=== PATIENT | male | born 1930 | race Caucasian/White ===

== ENCOUNTER 2016-03-29 01:48 | Inpatient (IN) ==
--- NOTE | 2016-03-29 02:14 | Emergency Department Note ---
Disposition Clinical Impression: Chest pain Qualifiers: Chest pain type: unspecified Qualified Code(s): R07.9 - Chest pain, unspecified Disposition: Admitted As Inpatient Condition: Fair Time of Disposition: 04:17 Chest Pain HPI - General Chief Complaint: ED Chest Pain Stated Complaint: chest pain Time Seen by Provider: 03/29/16 02:08 Source: patient, EMS Limitations: no limitations Vital Signs Reviewed: Yes Nursing Notes Reviewed: Yes - History of Present Illness HPI Narrative: 85-year-old male with history of hypertension and hyperlipidemia presents to the emergency department for evaluation of chest pain. Patient states that his chest pain began at approximately 9:00 yesterday evening. Patient states that it progressively got worse and was radiating into his left shoulder and left neck. Patient states that he talk with his family and they gave him an aspirin which he states resolved his chest pain shortly afterwards. He denies any diaphoresis, nausea or vomiting. Patient states he has no known history of coronary artery disease. States he's never had a heart catheter done. Patient states she was feeling well up until this point. Currently is chest pain-free. Exam is remarkable for an elderly male resting in bed in no acute distress. He is awake and alert. Heart is regular rate and rhythm. He does have a 2/6 systolic murmur. His lungs are clear to auscultation bilaterally. His abdomen is soft and nontender. Labs, EKG and chest x-ray ordered. Pt complaint: chest pain Onset (ago): hour(s) (5) Duration: intermittent, now resolved Pain Location: left chest Severity: mild Severity scale (1-10): 4 Quality: sharp Pain Radiation: LUE, jaw/teeth Worsens with: nothing Associated symptoms: Denies: nausea, vomiting, diaphoresis, dyspnea Treatments prior to arrival chest pain: aspirin - Related Data Home Medications Medication Instructions Recorded Confirmed Amlodipine Besylate 5 mg PO DAILY 03/29/16 03/29/16 Lovastatin 10 mg PO DAILY 03/29/16 03/29/16 Metoprolol Tartrate 50 mg PO BID 03/29/16 03/29/16 Allergies Allergy/AdvReac Type Severity Reaction Status Date / Time No Known Allergies Allergy Verified 03/29/16 02:18 All systems ED: reviewed and negative except as stated. Constitutional: Denies: fever Cardiovascular: Reports: chest pain. Denies: palpitations, dyspnea on exertion Respiratory: Denies: cough, dyspnea, wheezes Gastrointestinal: Denies: abdominal pain, nausea, vomiting Genitourinary: Denies: dysuria Integumentary: Denies: rash Neurological: Denies: headache Chest Pain PMH - Past Medical History Medical history: Reports: hyperlipidemia, hypertension Psychiatric history: Reports: no psych history - Social History Smoking Status: Never smoker Alcohol use: Reports: none Drug use: Reports: none Physical Exam - General Limitations: no limitations General appearance: alert, in no apparent distress - Head Head exam: atraumatic, normocephalic, normal inspection - Chest Chest inspection: Present: normal inspection, symmetric chest wall rise - Respiratory Respiratory exam: Present: normal lung sounds bilaterally - Cardiovascular Cardiovascular exam: Present: regular rate, normal rhythm, systolic murmur - Abdominal Exam Abdominal exam: Present: soft, Non-Tender. Absent: tenderness, distention, guarding, rebound, rigidity - Neurological Exam Neurological exam: Present: alert - Skin Skin exam: Present: warm, dry, intact, normal color Course - Reevaluation(s) Reevaluation #1: Discussed findings with patient and family. Will admit to the hospital for observation. Discussed with hospitalist service who has accepted the patient on the contingency that [facility]. Contacted the facility states that it is the recommendation that the patient be admitted here since they do not have cardiology for consultation. Time: 04:52 Vital Signs Temperature 99.3 F 03/29/16 01:51 Pulse Rate 85 03/29/16 01:51 Respiratory Rate 20 03/29/16 01:51 Blood Pressure 145/78 03/29/16 01:51 O2 Sat by Pulse Oximetry 97 03/29/16 01:51 Temperature 97.8 F 03/29/16 05:15 Pulse Rate 74 03/29/16 05:15 Respiratory Rate 14 03/29/16 05:15 Blood Pressure 111/59 03/29/16 05:15 O2 Sat by Pulse Oximetry 95 03/29/16 05:15 Oxygen Delivery Oxygen Delivery Nasal Cannula Chest Pain - Medical Records Medical records reviewed: Yes I reviewed the patient's medical records. - Lab Data Lab results reviewed: Yes I reviewed the patient's lab results. Result diagrams: 03/29/16 02:25 03/29/16 02:25 Lab Results 03/29/16 03/29/1603/29/17 Range/Units 02:25 02:25 02:25 WBC 22.7 H (4.3-11.1) K/mcL RBC 3.99 L (4.19-5.50) M/mcL Hgb 11.5 L (12.9-16.9) g/dL Hct 35.1 L (37.5-50.1) % MCV 88.0 (83.0-100.0) fL MCH 28.8 (28.0-33.3) pg MCHC 32.8 (31.6-35.5) g/dL RDW 13.7 (11.5-14.5) % Plt Count 302 (140-400) K/mcL MPV 10.1 (9.4-12.4) fL Immature Gran % 0.8 (0-4) % Seg Neutrophils % 85.4 % Lymphocytes % 5.0 % Monocytes % 8.4 % Eosinophils % 0.1 % Basophils % 0.3 % Neutrophils # 19.4 H (1.6-8.9) K/mcL Lymphocytes # 1.1 (0.6-4.6) K/mcL Monocytes # 1.9 H (0.0-1.3) K/mcL Eosinophils # 0.0 (0.0-0.6) K/mcL Basophils # 0.1 (0.0-0.2) K/mcL Sodium 138 (136-145) mEq/L Potassium 4.6 H (3.5-4.5) mEq/L Chloride 105 (98-109) mEq/L Carbon Dioxide 22 (19-29) mEq/L BUN 21 (8-26) mg/dL Creatinine 1.42 H (0.72-1.25) mg/dL Est GFR ( Amer) 57 L (> 60) Est GFR (Non-Af Amer) 47 L (> 60) BUN/Creatinine Ratio 15 (6-26) Glucose 135 H (70-99) mg/dL Calculated Osmolality 291 (280-300) Calcium 9.9 (8.6-10.8) mg/dL Troponin I 0.01 (0-0.03) ng/mL Urine Color (Yellow) Urine Clarity (Clear) Urine pH (5.0-8.0) pH Units Ur Specific [place] (1.010-1.025) Urine Protein (Neg-Trace) mg/dL Urine Glucose (UA) (Normal) mg/dL Urine Ketones (Negative) mg/dL Urine Blood (Negative) Urine Nitrite (Negative) Urine Bilirubin (Negative) Urine Urobilinogen (Normal) mg/dL Ur Leukocyte Esterase (Negative) Urine Microscopic RBC (0-3) per hpf Urine Microscopic WBC (0-3) per hpf Ur Squamous Epith Cells (None-Few) per lpf Urine Bacteria (None-Few) per hpf Hyaline Casts (None-Few) per lpf Ur Culture Indicated? (NO) 03/29/16 Range/Units 03:10 WBC (4.3-11.1) K/mcL RBC (4.19-5.50) M/mcL Hgb (12.9-16.9) g/dL Hct (37.5-50.1) % MCV (83.0-100.0) fL MCH (28.0-33.3) pg MCHC (31.6-35.5) g/dL RDW (11.5-14.5) % Plt Count (140-400) K/mcL MPV (9.4-12.4) fL Immature Gran % (0-4) % Seg Neutrophils % % Lymphocytes % % Monocytes % % Eosinophils % % Basophils % % Neutrophils # (1.6-8.9) K/mcL Lymphocytes # (0.6-4.6) K/mcL Monocytes # (0.0-1.3) K/mcL Eosinophils # (0.0-0.6) K/mcL Basophils # (0.0-0.2) K/mcL Sodium (136-145) mEq/L Potassium (3.5-4.5) mEq/L Chloride (98-109) mEq/L Carbon Dioxide (19-29) mEq/L BUN (8-26) mg/dL Creatinine (0.72-1.25) mg/dL Est GFR ( Amer) (> 60) Est GFR (Non-Af Amer) (> 60) BUN/Creatinine Ratio (6-26) Glucose (70-99) mg/dL Calculated Osmolality (280-300) Calcium (8.6-10.8) mg/dL Troponin I (0-0.03) ng/mL Urine Color Yellow (Yellow) Urine Clarity Clear (Clear) Urine pH 7.0 (5.0-8.0) pH Units Ur Specific [place] 1.018 (1.010-1.025) Urine Protein 30 H (Neg-Trace) mg/dL Urine Glucose (UA) Normal (Normal) mg/dL Urine Ketones Negative (Negative) mg/dL Urine Blood Negative (Negative) Urine Nitrite Negative (Negative) Urine Bilirubin Negative (Negative) Urine Urobilinogen Normal (Normal) mg/dL Ur Leukocyte Esterase Negative (Negative) Urine Microscopic RBC 0-3 (0-3) per hpf Urine Microscopic WBC 0-3 (0-3) per hpf Ur Squamous Epith Cells Moderate H (None-Few) per lpf Urine Bacteria None Seen (None-Few) per hpf Hyaline Casts None Seen (None-Few) per lpf Ur Culture Indicated? NO (NO) - Radiology Data Radiology results reviewed: Yes I reviewed the patient's radiology results. - EKG Data EKG attestation: Yes I reviewed and interpreted this EKG. EKG shows normal: sinus rhythm Rate: normal [place]/QRS: RBBB Interpretation: no acute changes Heart Score - Score History: Slightly Suspicious EKG: Non Specific repolarisation Disturbance Age: Greater than 65 Risk Factors: 1-2 risk factors Troponin: Less than normal limit HEART Score Total: 4 Attestation Statement - Attestation Attestation: I, Herrera Ansari MD, personally performed a history and physical exam of the patient and discussed their management with the resident. I reviewed the resident's note and agree with the documented findings, medical decision making , and plan of care. 85-year-old male who presents to the emergency department with a complaint of some substernal chest pain radiating to the back of the neck and the left side of the neck and left shoulder which started earlier this evening. He denies shortness of breath. No nausea or vomiting or diaphoresis. He denies any known history of heart problems. Family reports that he does sometimes get short of breath especially with exertion but is not on home oxygen. On examination patient is a well-developed well-nourished elderly male in no acute distress. He is alert and oriented 3. There is no cyanosis or diaphoresis. Chest is nontender to palpation. Breath sounds are decreased but equal bilaterally with no rales or wheezes noted. Heart regular rate and rhythm with a grade 3/6 systolic murmur. Abdomen soft and nontender with normal bowel sounds. Labs reviewed. Chest x-ray shows CHF with mild pulmonary vascular congestion. EKG shows a normal sinus rhythm with a right bundle branch block which was present on his prior EKG from 1996. The hospitalist, Dr. Morgan, was consulted and accepted admission of the patient.
[2016-03-29 02:35] LABS: Basophils # 0.1 K/mcL (0.0-0.2); Basophils % 0.3 %; Eosinophils % 0.1 %; Hematocrit 35.1 % (37.5-50.1); Hemoglobin 11.5 g/dL (12.9-16.9); Immature Granulocytes % 0.8 % (0-4); Lymphocytes # 1.1 K/mcL (0.6-4.6); Mean Corpuscular HGB Conc 32.8 g/dL (31.6-35.5); Mean Corpuscular Hemoglobin 28.8 pg (28.0-33.3); Mean Platelet Volume 10.1 fL (9.4-12.4); Monocytes # 1.9 K/mcL (0.0-1.3); Monocytes % 8.4 %; Neutrophils # 19.4 K/mcL (1.6-8.9); Platelet Count 302 K/mcL (140-400); Red Blood Count 3.99 M/mcL (4.19-5.50); Red Cell Distribution Width 13.7 % (11.5-14.5); Segmented Neutrophils % 85.4 %
[2016-03-29 02:46] LABS: Calcium 9.9 mg/dL (8.6-10.8); Potassium 4.6 mEq/L (3.5-4.5)
[2016-03-29 03:44] LABS: Bilirubin,Urine Negative (Negative); Blood,Urine Negative (Negative); Clarity,Urine Clear (Clear); Color,Urine Yellow (Yellow); Glucose,Urine (UA) Normal (Normal); Ketones,Urine Negative (Negative); Leukocyte Esterase,Urine Negative (Negative); Nitrite,Urine Negative (Negative); Protein,Urine 30 mg/dL (Neg-Trace); Specific Gravity,Urine 1.018 (1.010-1.025); Urobilinogen,Urine Normal (Normal)
[2016-03-29 03:47] LABS: Bacteria,Urine None Seen per hpf (None-Few); Hyaline Casts,Urine None Seen per lpf (None-Few); RBC,Urine 0-3 per hpf (0-3); Squamous Epithelial Cell,Urine Moderate per lpf (None-Few); WBC,Urine 0-3 per hpf (0-3)
[2016-03-29] MEDS ORDERED: Nitroglycerin 0.4 MG TAB.SUBL SL PRN (05:53)
[2016-03-29] MEDS ORDERED: Acetaminophen 325 MG TABLET PO PRN (05:55)
[2016-03-29] MEDS ORDERED: Ondansetron 4 MG/2 ML VIAL IVP PRN (05:55)
[2016-03-29] MEDS ORDERED: Naloxone 0.4 MG/ML INJ IVP PRN (05:55)
[2016-03-29] MEDS ORDERED: 0.9 % Sodium Chloride 1,000 ML IVC SCH ×2 (06:00→06:44)
[2016-03-29] MEDS ORDERED: *HR* Morphine 2 MG/ML SYRINGE IVP PRN (06:18)
--- NOTE | 2016-03-29 06:28 | Internal Med History&Physical ---
<Maritza Coelho - Last Filed: 03/29/16 06:01> Date of Encounter: 03/29/16 Time of Encounter: 05:15 Assessment and Plan (1) Chest pain with moderate risk of acute coronary syndrome Current visit: Yes Status: Acute Patient came in with CC of substernal sharp CP radiating to back and shoulder. DEVORA score is 3- moderate risk factor for all cause mortality. EKG showed RBBB with nonspecific T wave changes. CXR showed CHF with mild pulmonary vascular congestion, likely secondary to ACS - jeffery to gravity, strict I/O. ASA, statin, BB, SL nitroglycerin PRN Morphine PRN Oxygen PRN Initial Trope negative, two more pending. Consider stress test if tropes remain negative. cardiac diet. (2) Chest pain, rule out acute myocardial infarction Current visit: Yes Status: Acute Plan as above. (3) DINA (acute kidney injury) Current visit: Yes Status: Acute Patient's Cr is 1.42, no records of prior Cr to compare. Etiology likely due to acute ACS. IVF hydration Avoid nephrotoxic agents. (4) HTN (hypertension) Current visit: Yes Status: Acute Continue Amlodipine and monitor. Qualifiers: Hypertension type: essential hypertension Qualified Code(s): I10 - Essential (primary) hypertension (5) HLD (hyperlipidemia) Current visit: Yes Status: Acute Continue home statin Lipid panel pending. Qualifiers: Hyperlipidemia type: unspecified Qualified Code(s): E78.5 - Hyperlipidemia , unspecified (6) DVT prophylaxis Current visit: Yes Status: Acute Heparin 5,000 units SQ Q8HR Protonix for GI prophylaxis. Internal Medicine - H&P: HPI Chief complaint: chest pain Admitted From: Emergency Dept Plans for Post Hospital Care: Home History of present illness: PCP: Dr. Gonzales at [facility] POA: Arnel (son) Mr. Quevedo is a 85 year old male with PMHx significant for HTN, HLD. Patient states that he came to the ED with CC of chest pain that started at 9pm last night. He describes the CP as sharp, diffuse and radiating to his left arm and left shoulder. When the pain started, it was a 10/10 but currently is a 2/10. His son gave him 325 ASA which relieved the pain. Patient states that he never had anything like this before. Taking a deep breath makes the pain worse. He denies Nausea, vomiting, diarrhea. ROS: He reports subjective fever and chills. He reports mild dizziness. About three months ago he reports that he had an episode of falling back on the bed after getting up out of bed too quickly. Other than this, he reports no history of falls. Sometimes, he has trouble walking and says he is "wobbly." Patient has mild shortness of breath. He denies history of pacemaker or defibrillator implants. He denies hematuria/hematochezia. Social Hx: lives with his son Arnel, who is also his POA. Not a current smoker , denies hx of smoking. Denies alcohol or illicit drug use. Surgical Hx: left inguinal hernia Past Med Surg Social Fam HX - Past Medical History Medical history: hyperlipidemia, hypertension Psychiatric history: no psych history - Past Surgical History Surgical History: herniorrhaphy - Social History Smoking Status: Never smoker Smokeless Tobacco Status: No Alcohol use: none Drug use: none Internal Medicine - H&P: Meds Amlodipine Besylate 5 mg PO DAILY 03/29/16 [History] Lovastatin 10 mg PO DAILY 03/29/16 [History] Metoprolol Tartrate 50 mg PO BID 03/29/16 [History] Allergies No Known Allergies Allergy (Verified 03/29/16 08:19) All Systems PM: A 10-system review of systems was performed and is negative for pertinent findings except as documented above in the HPI. - Constitutional Constitutional: chills, falls, weakness, no night sweats - EENT Eyes: no blurry vision Nose, mouth and throat: no bleeding gums - Cardiovascular Cardiovascular ROS IM: chest pain, no diaphoresis, no palpitations, no syncope - Respiratory Respiratory: no dyspnea - Gastrointestinal Gastrointestinal: no abdominal pain, no diarrhea, no hematochezia, no melena, no nausea, no vomiting - Neurological Neurological ROS: dizziness, no abnormal movements, no behavioral changes, no frequent falls, no headache(s) - Psychiatric Psychiatric: no confusion - Constitutional Vitals: Temp Pulse Resp BP Pulse Ox 97.8 F 74 14 111/59 95 03/29/16 05:15 03/29/16 05:15 03/29/16 05:15 03/29/16 05:15 03/29/16 05:15 General appearance: Present: A&O X 3, pleasant, no acute distress, answers questions appropriately - Head Head exam: Present: atraumatic, normocephalic - Neck Neck exam general surgery: Present: supple, trachea midline - Respiratory Respiratory exam: Present: CTAB. Absent: rales, wheezes - Cardiovascular Cardiovascular exam: Present: RRR, +S1, +S2, systolic murmur - GI/Abdominal GI/Abdominal exam: Present: soft, tenderness (middle and left side of abdomen was tender. ). Absent: distended - Extremities Exam Additional comments: right foot swollen. - Neurological Exam Neurological exam: Present: alert, oriented X3, no focal deficits Internal Med - H&P Results - Labs CBC & Chem 7: 03/29/16 02:25 03/29/16 02:25 <Erick Morgan - Last Filed: 03/29/16 22:28> Date of Encounter: 03/29/16 Assessment and Plan (1) CKD (chronic kidney disease) stage 3, GFR 30-59 ml/min Current visit: Yes Status: Acute (2) SIRS (systemic inflammatory response syndrome) Current visit: Yes Status: Acute (3) Dehydration with hypernatremia Current visit: Yes Status: Acute (4) Hyperglycemia without ketosis Current visit: Yes Status: Acute (5) Hx of proteinuria syndrome Current visit: Yes Status: Acute (6) Anemia Current visit: Yes Status: Acute (7) RBBB Current visit: Yes Status: Acute (8) DINA (acute kidney injury) Current visit: Yes Status: Acute (9) Chest pain with moderate risk of acute coronary syndrome Current visit: Yes Status: Acute (10) Chest pain, rule out acute myocardial infarction Current visit: Yes Status: Acute (11) HLD (hyperlipidemia) Current visit: Yes Status: Acute Qualifiers: Hyperlipidemia type: unspecified Qualified Code(s): E78.5 - Hyperlipidemia , unspecified (12) HTN (hypertension) Current visit: Yes Status: Acute Qualifiers: Hypertension type: essential hypertension Qualified Code(s): I10 - Essential (primary) hypertension (13) Acute respiratory failure with hypoxia Current visit: Yes Status: Acute . (14) Pulmonary edema w/congestive heart failure w/preserved LV function Current visit: Yes Status: Acute . (15) Demand ischemia of myocardium Current visit: Yes Status: Acute . (16) Ischemia due to increased oxygen demand Current visit: Yes Status: Acute . Internal Medicine - H&P: HPI History of present illness: Mr. Quevedo is a 85 year old male The patient was visited and interviewed and examined. I examined this patient and my medical decision-making was reviewed with the Resident Physician. For this encounter, I have reviewed the Residen Physician's documentation, treatment plan and medical decision making; and I have had [id number] time with this patient. I agree with the documented findings, disposition and treatment plan as described except for the extent set forth below. Cumulative laboratory and radiographic database was reviewed and considered and discussed. Pertinent ancillary medical records including [facility], PCI and [facility] documentation, when available, was reviewed and considered. Given the patient's presenting concerns, past medical history, clinical findings and symptoms, he is admitted at this time to undergo further evaluation and disposition. Orders written as per the computerized physician division order technician system................................... All Systems PM: A 10-system review of systems was performed and is negative for pertinent findings except as documented above in the HPI. - Constitutional Vitals: Temp Pulse Resp BP Pulse Ox 98.3 F 82 15 92/51 97 03/29/16 12:51 03/29/16 15:00 03/29/16 15:00 03/29/16 15:00 03/29/16 15:00 Internal Med - H&P Results - Labs CBC & Chem 7: 03/29/16 02:25 03/29/16 02:25 Labs: Cardiac Enzymes 03/29/16 Range/Units 14:11 Troponin I 0.02 (0-0.03) ng/mL - Impressions ITS Impressions Face CT 03/29/16 12:00 IMPRESSION: No acute abnormality of the face. Sclerosis of the C3 vertebral body. Nonemergent evaluation with contrast-enhanced MRI of the cervical spine recommended. D/ / Berta Dumont MD / Berta Dumont MD Interpreting Provider: Berta Dumont MD Vital Signs Temp Pulse Resp BP Pulse Ox 03/29/16 15:00 82 15 92/51 97 03/29/16 12:51 98.3 F 69 20 116/49 95 03/29/16 11:26 93 L 03/29/16 11:00 75 15 111/55 94 L 03/29/16 08:15 71 100/49 03/29/16 08:00 72 118/59 03/29/16 07:45 78 111/69 03/29/16 07:28 73 125/62 93 L 03/29/16 06:55 76 18 119/64 97 03/29/16 05:15 97.8 F 74 14 111/59 95 03/29/16 04:47 99.2 F 18 130/60 03/29/16 04:35 71 16 130/60 97 03/29/16 03:36 76 24 139/88 95 03/29/16 02:19 97 03/29/16 02:07 97 03/29/16 01:51 99.3 F 85 20 145/78 97 Intake and Output 03/29/16 03/29/16 03/29/16 07:59 15:59 23:59 Intake Total 120 / 120 1140 / 1140 Output Total 200 / 200 Balance -200 / -200 120 / 120 1140 / 1140 Intake: IV Fluids 900 / 900 0.9 % Sodium Chloride 1, 900 / 900 000 ML @ 125 mls/hr IVC . Q8H [facility] Rx#:[id number] Oral 120 / 120 240 / 240 Output: Urine 200 / 200 Other: Meal Lunch Dinner Percent of Meal Consumed 60% 10% Weight 61.9 kg Patient Weight 03/29/16 23:59 Weight 61.9 kg Short CBC 03/29/16 Range/Units 02:25 WBC 22.7 H (4.3-11.1) K/mcL Hgb 11.5 L (12.9-16.9) g/dL Hct 35.1 L (37.5-50.1) % Plt Count 302 (140-400) K/mcL Neutrophils # 19.4 H (1.6-8.9) K/mcL BMP 03/29/16 Range/Units 02:25 Sodium 138 (136-145) mEq/L Potassium 4.6 H (3.5-4.5) mEq/L Chloride 105 (98-109) mEq/L Carbon Dioxide 22 (19-29) mEq/L BUN 21 (8-26) mg/dL Creatinine 1.42 H (0.72-1.25) mg/dL Glucose 135 H (70-99) mg/dL Calcium 9.9 (8.6-10.8) mg/dL Cardiac Enzymes 03/29/16 03/29/16 03/29/16 Range/Units 14:11 09:04 02:25 Troponin I 0.02 0.01 0.01 (0-0.03) ng/mL Urine 03/29/16 Range/Units 03:10 Urine Color Yellow (Yellow) Urine Clarity Clear (Clear) Urine pH 7.0 (5.0-8.0) pH Units Ur Specific [place] 1.018 (1.010-1.025) Urine Protein 30 H (Neg-Trace) mg/dL Urine Glucose (UA) Normal (Normal) mg/dL Abnormal lab results WBC 22.7 K/mcL (4.3-11.1) H 03/29/16 02:25 RBC 3.99 M/mcL (4.19-5.50) L 03/29/16 02:25 Hgb 11.5 g/dL (12.9-16.9) L 03/29/16 02:25 Hct 35.1 % (37.5-50.1) L 03/29/16 02:25 Neutrophils # 19.4 K/mcL (1.6-8.9) H 03/29/16 02:25 Monocytes # 1.9 K/mcL (0.0-1.3) H 03/29/16 02:25 Potassium 4.6 mEq/L (3.5-4.5) H 03/29/16 02:25 Creatinine 1.42 mg/dL (0.72-1.25) H 03/29/16 02:25 Est GFR ( Amer) 57 (> 60) L 03/29/16 02:25 Est GFR (Non-Af Amer) 47 (> 60) L 03/29/16 02:25 Glucose 135 mg/dL (70-99) H 03/29/16 02:25 Urine Protein 30 mg/dL (Neg-Trace) H 03/29/16 03:10 Ur Squamous Epith Cells Moderate per lpf (None-Few) H 03/29/16 03:10 Laboratory Results WBC 22.7 K/mcL (4.3-11.1) H 03/29/16 02:25 RBC 3.99 M/mcL (4.19-5.50) L 03/29/16 02:25 Hgb 11.5 g/dL (12.9-16.9) L 03/29/16 02:25 Hct 35.1 % (37.5-50.1) L 03/29/16 02:25 MCV 88.0 fL (83.0-100.0) 03/29/16 02:25 MCH 28.8 pg (28.0-33.3) 03/29/16 02:25 MCHC 32.8 g/dL (31.6-35.5) 03/29/16 02:25 RDW 13.7 % (11.5-14.5) 03/29/16 02:25 Plt Count 302 K/mcL (140-400) 03/29/16 02:25 MPV 10.1 fL (9.4-12.4) 03/29/16 02:25 Immature Gran % 0.8 % (0-4) 03/29/16 02:25 Seg Neutrophils % 85.4 % 03/29/16 02:25 Lymphocytes % 5.0 % 03/29/16 02:25 Monocytes % 8.4 % 03/29/16 02:25 Eosinophils % 0.1 % 03/29/16 02:25 Basophils % 0.3 % 03/29/16 02:25 Neutrophils # 19.4 K/mcL (1.6-8.9) H 03/29/16 02:25 Lymphocytes # 1.1 K/mcL (0.6-4.6) 03/29/16 02:25 Monocytes # 1.9 K/mcL (0.0-1.3) H 03/29/16 02:25 Eosinophils # 0.0 K/mcL (0.0-0.6) 03/29/16 02:25 Basophils # 0.1 K/mcL (0.0-0.2) 03/29/16 02:25 D-Dimer 395 ng/mLFEU (0-500) 03/29/16 09:04 Sodium 138 mEq/L (136-145) 03/29/16 02:25 Potassium 4.6 mEq/L (3.5-4.5) H 03/29/16 02:25 Chloride 105 mEq/L (98-109) 03/29/16 02:25 Carbon Dioxide 22 mEq/L (19-29) 03/29/16 02:25 BUN 21 mg/dL (8-26) 03/29/16 02:25 Creatinine 1.42 mg/dL (0.72-1.25) H 03/29/16 02:25 Est GFR ( Amer) 57 (> 60) L 03/29/16 02:25 Est GFR (Non-Af Amer) 47 (> 60) L 03/29/16 02:25 BUN/Creatinine Ratio 15 (6-26) 03/29/16 02:25 Glucose 135 mg/dL (70-99) H 03/29/16 02:25 Calculated Osmolality 291 (280-300) 03/29/16 02:25 Lactic Acid 1.8 mmol/L (0.5-2.2) 03/29/16 09:04 Calcium 9.9 mg/dL (8.6-10.8) 03/29/16 02:25 Troponin I 0.02 ng/mL (0-0.03) 03/29/16 14:11 Triglycerides 69 mg/dL (< 150) 03/29/16 09:04 Cholesterol 119 mg/dL (< 200) 03/29/16 09:04 LDL Cholesterol, Calc 63 mg/dL (0-99) 03/29/16 09:04 VLDL Cholesterol, Calc 14 mg/dL (< 31) 03/29/16 09:04 HDL Cholesterol 42 mg/dL (40-59) 03/29/16 09:04 Cholesterol/HDL Ratio 2.8 (0-4.9) 03/29/16 09:04 Urine Color Yellow (Yellow) 03/29/16 03:10 Urine Clarity Clear (Clear) 03/29/16 03:10 Urine pH 7.0 pH Units (5.0-8.0) 03/29/16 03:10 Ur Specific [place] 1.018 (1.010-1.025) 03/29/16 03:10 Urine Protein 30 mg/dL (Neg-Trace) H 03/29/16 03:10 Urine Glucose (UA) Normal mg/dL (Normal) 03/29/16 03:10 Urine Ketones Negative mg/dL (Negative) 03/29/16 03:10 Urine Blood Negative (Negative) 03/29/16 03:10 Urine Nitrite Negative (Negative) 03/29/16 03:10 Urine Bilirubin Negative (Negative) 03/29/16 03:10 Urine Urobilinogen Normal mg/dL (Normal) 03/29/16 03:10 Ur Leukocyte Esterase Negative (Negative) 03/29/16 03:10 Urine Microscopic RBC 0-3 per hpf (0-3) 03/29/16 03:10 Urine Microscopic WBC 0-3 per hpf (0-3) 03/29/16 03:10 Ur Squamous Epith Cells Moderate per lpf (None-Few) H 03/29/16 03:10 Urine Bacteria None Seen per hpf (None-Few) 03/29/16 03:10 Hyaline Casts None Seen per lpf (None-Few) 03/29/16 03:10 Ur Culture Indicated? NO (NO) 03/29/16 03:10 Impressions Chest X-Ray 03/29/16 02:11 IMPRESSION: CHF with mild pulmonary vascular congestion. D/ / Audie Russell MD / Audie Russell MD Interpreting Provider: Audie Russell MD Face CT 03/29/16 12:00 IMPRESSION: No acute abnormality of the face. Sclerosis of the C3 vertebral body. Nonemergent evaluation with contrast-enhanced MRI of the cervical spine recommended. D/ / Berta Dumont MD / Berta Dumont MD Interpreting Provider: Berta Dumont MD - Attending Attestation My signature below is to certify that this patient is under my care and that I, or the Resident Physician working with me, has had a [id number] encounter with this patient. Plan of care has been reviewed and discussed with the patient. Questions were addressed. Advance care directive discussion briefly addressed. The patient declares specific restrictions at this time. Outpatient medications schedules will be reviewed, confirmed and facilitated as appropriate. Reconciliation of home treatments including adjustments, substitutions and reintroduction to the treatment regimen addressed as a maintenance therapies for chronic existing medical conditions. Smoke cessation counseling for addressed. The patient declares himself a nonsmoker. Hospital course will be dependent on collective clinical findings, treatment response and potential consultative interventions. The patient is at risk for further acute clinical decline and morbidity given his advanced age, presenting complaint, clinical findings and comorbidities. Condition is serious. Prognosis is guarded. CODE STATUS is DNR comfort care arrest DNI.
[2016-03-29] MEDS ORDERED: *HR* Heparin 5,000 UNIT/ML VIAL SQ SCH (07:00)
[2016-03-29] MEDS ORDERED: amLODIPine 5 MG TABLET PO SCH (09:00)
[2016-03-29 09:35] LABS: Chol/HDL Ratio 2.8 (0-4.9)
[2016-03-29] MEDS ORDERED: Levofloxacin 750 MG/150 ML 750 MG/150 ML BAG IVPB SCH (10:00)
[2016-03-29] MEDS ORDERED: Levofloxacin 500 MG/100 ML 500 MG/100 ML BAG IVPB SCH (10:00)
[2016-03-29] MEDS: Pantoprazole 40 MG VIAL IVP SCH (11:01)
[2016-03-29] MEDS: 0.9 % Sodium Chloride 1,000 ML IVC SCH ×2 (11:01→17:15)
[2016-03-29] MEDS: Aspirin 81 MG TAB.CHEW PO SCH (11:01)
[2016-03-29] MEDS: *HR* Heparin 5,000 UNIT/ML VIAL SQ SCH ×3 (13:28→17:27)
[2016-03-29] MEDS: Piperacillin/Tazobactam 3.375 GM in D5% in Water (Mini-Bag+) 100 ML IVPB SCH (17:14)
--- NOTE | 2016-03-29 17:48 | Event Note ---
Date of Encounter: 03/29/16 Time of Encounter: 17:22 85/M PCP: Dr Art HPI : Admitted with Chest pain. One episode and was brought in by patient's son who claims that patient had teeth extraction on 03/19/2016( left upper 5). patient received 16 tabs of amoxicillin and he never completed the course. Denies SOB, Nausea, Vomiting and abdominal pain. admitted by night team with concern regarding chest pain. Vitals : Afebrile, tachycardic ( 99/m), 92/51 mm of Hg, 97% on RA. PE: Examination of oral cavity is suggestive of possible left upper dental abscess. Examination of eyes, ears, nose cervical area does not reveal any abnormality. Examination of heart is suggestive of grade 5/6, holosystolic murmur which does not change with respiration. Examination of the gland is within normal limit. His abdominal examination is benign. His neurological examination did not reveal any major abnormality. Assessment and plan Dental abscess secondary to tooth extraction with noncompliance in terms of antibiotics. Multiple medical issues as listed in history and physical Plan: CT chest of the face with contrast: Negative for any abscess. Presently on antibiotics: Zosyn and Levaquin, dual coverage for Pseudomonas. Will get echocardiogram done. I have spoken to the dentist Dr. Reggie Garnica [phone] ( exchanged information )
[2016-03-30] MEDS: Piperacillin/Tazobactam 3.375 GM in D5% in Water (Mini-Bag+) 100 ML IVPB SCH ×3 (01:52→16:14)
[2016-03-30] MEDS: *HR* Heparin 5,000 UNIT/ML VIAL SQ SCH ×3 (01:52→22:27)
[2016-03-30] MEDS: 0.9 % Sodium Chloride 1,000 ML IVC SCH ×4 (01:53→22:28)
[2016-03-30 05:29] LABS: Basophils # 0.1 K/mcL (0.0-0.2); Basophils % 0.4 %; Eosinophils % 0.2 %; Hematocrit 29.5 % (37.5-50.1); Immature Granulocytes % 0.6 % (0-4); Lymphocytes # 2.2 K/mcL (0.6-4.6); Lymphocytes % 17.1 %; Mean Corpuscular HGB Conc 32.2 g/dL (31.6-35.5); Mean Corpuscular Hemoglobin 29.1 pg (28.0-33.3); Mean Corpuscular Volume 90.2 fL (83.0-100.0); Mean Platelet Volume 10.9 fL (9.4-12.4); Monocytes # 1.6 K/mcL (0.0-1.3); Monocytes % 12.3 %; Platelet Count 247 K/mcL (140-400); Red Blood Count 3.27 M/mcL (4.19-5.50); Red Cell Distribution Width 14.2 % (11.5-14.5); Segmented Neutrophils % 69.4 %
[2016-03-30 05:33] LABS: Hemoglobin 9.5 g/dL (12.9-16.9)
[2016-03-30 05:49] LABS: Calcium 8.5 mg/dL (8.6-10.8); Potassium 4.5 mEq/L (3.5-4.5)
[2016-03-30] MEDS: Aspirin 81 MG TAB.CHEW PO SCH (09:47)
[2016-03-30] MEDS: Pantoprazole 40 MG VIAL IVP SCH (09:47)
[2016-03-30] MEDS ORDERED: Bisacodyl 10 MG RECTAL SUPPOSITORY RC PRN (10:52)
--- NOTE | 2016-03-30 10:58 | ECHO - Doppler Report ---
Echocardiogram Name: Raymond Quevedo Date of Study: 03/29/2016 Date: 1930 Ht: 67.0 in Medical Record#: [id number] Age: 85 Wt: 136.0 lb Gender: Male BSA: 1.72 Order #: [id number] Location: [facility] Room #: 2NE27 Reading Physician: Micheal Pfeiffer DO, ROSEMARY, FILEMON BOO Oxygen Therapy Technician: TRUDY HudsonT Ordering Physician: Maritza Coelho DO Primary Physician: [facility] Indications: Congestive heart failure Impressions: LVEF 65-70%. Normal LV chamber size and function. Mild concentric left ventricular hypertrophy. Mild left ventricular diastolic dysfunction. Normal right ventricular structure and function. Moderately dilated left atrium. Severely calcified, probable trileaflet aortic valve with reduced excursion. Severe aortic stenosis. Mean gradient 41 mmHg. Peak velocity 4.02 m/s. Mild pulmonary hypertension. Estimated RVSP is [address] Coelho notified via [employer]. Left Ventricular Wall Motion: Rest Echo Findings All wall segments showed normal motion. Findings: Study Quality * Technically adequate exam. ECG Findings * Normal sinus rhythm. Left Ventricle * LVEF 65-70%. * Normal LV chamber size and function. * Mild concentric left ventricular hypertrophy. * Mild left ventricular diastolic dysfunction. Right Ventricle * Normal right ventricular structure and function. Left Atrium * Moderately dilated left atrium. Right Atrium * Normal right atrial size. Interatrial Septum * Interatrial septum not well evaluated. Aortic Valve * Severely calcified, probable trileaflet aortic valve with reduced excursion. * Severe aortic stenosis. Mean gradient 41 mmHg. Peak velocity 4.02 m/s. * Trace aortic regurgitation. Mitral Valve * Mild mitral annular calcification * Trace mitral regurgitation. * No mitral stenosis. Tricuspid Valve * Normal tricuspid valve structure and function. * Trace tricuspid regurgitation. * Mild pulmonary hypertension. * Estimated RVSP is 38 mmHg. * Estimated RA pressure is 5 mmHg. Pulmonic Valve * Normal pulmonic valve structure and function. * No pulmonic regurgitation. Aorta * Normally sized aortic root. Pericardium * The pericardium appears normal. IVC * Normal IVC dimensions and inspiratory collapse. Pulmonary Artery * Normal visualized portions of the main pulmonary artery. History Hypertension Hypercholesteremia Measurements: BP: 92/ 51 2D Normal Values RVIDd: 3.50 cm <2.7 cm IVSd: 1.30 cm 0.6 - 1.0 cm LVIDd: 4.10 cm 3.7 - 5.6 cm LVPWd: 1.30 cm 0.6 - 1.1 cm LVIDs: 3.00 cm 1.5 - 3.6 cm AO: 3.00 cm < 4.0 cm LA: 4.20 cm 2.0 - 4.0cm %FS: 26.80 cm >25 % LVOT Diam: 2.00 cm LA volume: 70 Mitral Valve Peak E:1.06 m/sec Peak A:1.09 m/sec E/A Ratio:1 Peak E' Lat Pedro:5.69 cm/s Peak E' Med Pedro:4.21 cm/s E/E' Lat Ratio:18.6 E/E' Med Ratio:25.2 LVOT Peak Pedro:1.27 m/sec Mean Pedro:.92 m/sec Peak Grad:6.00 mmHg Mean Grad:4.00 mmHg Aortic Valve Peak Pedro:4.02 m/sec Mean Pedro:3.04 m/sec Peak Grad:65.00 mmHg Mean Grad:41.00 mmHg Valve Area:1.25 cm2 Pressure 1/2 time:715.00 msec AI pressure Half-time: 715.00 msec Tricuspid Valve TV Regurg Peak Grad: 33.00mmHg TV Regurg Peak Pedro: 2.88m/sec Updated by Micheal Pfeiffer DO, FACDilcia, FILEMON BOO on 03/30/2016 10:53:03 AM electronically signed on 03/30/2016 10:53:55 AM with status of Final Wall Motion Herrera: 1=Normal, 2=Hypokinesis, 3=Akinesis, 4=Dyskinesis, 5=Aneurysmal, 6=Hyperkinetic, X=Not Visualized (Blank)=Missing
[2016-03-30] MEDS ORDERED: MOM Conc 10 ML UD.LIQ PO PRN (12:08)
--- NOTE | 2016-03-30 15:15 | Electrocardiograph Report ---
[place] [id number] Test Date: 2016-03-29 Pat Name: Raymond Quevedo Department: 105 Room: 2NE27 Gender: M Third Grade Teacher: : 1930 Requested By: Ronen Flores Order Number: [id number] Reading MD: Jing Arce Measurements Intervals [place] Rate: 83 P: -18 NH: 124 QRS: 20 QRSD: 141 T: 5 QT: 370 QTc: 410 Interpretive Statements SINUS RHYTHM RIGHT BUNDLE BRANCH BLOCK [120+ ms QRS DURATION, UPRIGHT V1, 40+ ms S IN I/aVL/V4/V5/V6] Electronically Signed On 03-30-2016 15:13:27 EST by Jing Arce
--- NOTE | 2016-03-30 15:31 | Electrocardiograph Report ---
[place] [id number] Test Date: 2016-03-29 Pat Name: Raymond Quevedo Department: 111 Room: 2NE27 Gender: M Front Office Clerk: : 1930 Requested By: Bebeto Dunham Order Number: [id number] Reading MD: Jing Arce Measurements Intervals [place] Rate: 77 P: 28 NM: 158 QRS: 30 QRSD: 141 T: 11 QT: 383 QTc: 414 Interpretive Statements SINUS RHYTHM WITH MARKED SINUS ARRHYTHMIA RIGHT BUNDLE BRANCH BLOCK Electronically Signed On 03-30-2016 15:30:03 EST by Jing Arce
--- NOTE | 2016-03-30 18:21 | Internal Med Progress Note ---
Date of Encounter: 03/30/16 Time of Encounter: 18:19 - Assessment and plan (1) SIRS (systemic inflammatory response syndrome) Current Visit: Yes Status: Acute Assessment and plan: meet 2/3 criteria. possible source is dental abscess. on Zosyn and Levaquin ( Day 2) tolerating well. blood culture negative so far. patient claims that he is much better. noted that WBC trending down. (2) DINA (acute kidney injury) Current Visit: Yes Status: Acute Assessment and plan: improving DINA received contrast and will keep close monitoring. (3) Aortic stenosis Current Visit: Yes Status: Acute Assessment and plan: severe aortic stenosis will get cardio for possible recommendation for TAVR as outpatient. Qualifiers: Cardiac valve disease etiology: etiology unspecified Qualified Code(s): I35.0 - Nonrheumatic aortic (valve) stenosis (4) HTN (hypertension) Current Visit: Yes Status: Acute Assessment and plan: stable for now Qualifiers: Hypertension type: essential hypertension Qualified Code(s): I10 - Essential (primary) hypertension - Subjective Interval history: seen and examined. patient feels much better. no new complaints. ECHO findings noted. - Constitutional Vitals: Temp Pulse Resp BP Pulse Ox 98.4 F 94 19 149/87 96 03/30/16 04:00 03/30/16 15:00 03/30/16 15:00 03/30/16 15:00 03/30/16 15:00 General appearance: Present: A&O X 3, pleasant, no acute distress, answers questions appropriately - Head Head exam: Present: atraumatic, normocephalic - Eye Eye exam: Present: PERRL, conjuntiva pink, sclera anicteric Pupils: Present: PERRL - Neck Neck exam general surgery: Present: supple, trachea midline. Absent: lymphadenopathy - Respiratory Respiratory exam: Present: CTAB. Absent: accessory muscle use, rales, rhonchi, wheezes - Cardiovascular Cardiovascular exam: Present: RRR, +S1, +S2. Absent: diastolic murmur, gallop, rubs, systolic murmur - GI/Abdominal GI/Abdominal exam: Present: normal bowel sounds, soft, no peritoneal signs. Absent: distended, tenderness - Extremities Exam Extremities exam: Present: warm, radial pulses palpable and symetrical. Absent : calf tenderness, cyanotic, pedal edema - Neurological Exam Neurological exam: Present: CN II-XII intact, oriented X3, no focal deficits. Absent: pronater drift, facial droop, speech deficit - Skin Skin exam: Present: dry, intact Internal Medicine: Result - Labs CBC & Chem 7: 03/30/16 04:37 03/30/16 04:37 Labs: Short CBC 03/30/16 Range/Units 04:37 WBC 13.0 H (4.3-11.1) K/mcL Hgb 9.5 L D (12.9-16.9) g/dL Hct 29.5 L (37.5-50.1) % Plt Count 247 (140-400) K/mcL Neutrophils # 9.0 H (1.6-8.9) K/mcL BMP 03/30/16 04:37 Sodium 138 Potassium 4.5 Chloride 110 H Carbon Dioxide 20 BUN 19 Creatinine 1.37 H Glucose 111 H Calcium 8.5 L - ABG Interpretation ABG results: PT/INR, D-dimer D-Dimer 395 ng/mLFEU (0-500) 03/29/16 09:04 Consult Discharge Plan - Plan [facility]errals: [facility] Care Provider[facility] -
[2016-03-31] MEDS: *HR* Heparin 5,000 UNIT/ML VIAL SQ SCH ×4 (01:30→22:58)
[2016-03-31] MEDS: Piperacillin/Tazobactam 3.375 GM in D5% in Water (Mini-Bag+) 100 ML IVPB SCH ×4 (01:31→23:55)
[2016-03-31 06:21] LABS: Basophils # 0.1 K/mcL (0.0-0.2); Basophils % 0.4 %; Eosinophils # 0.2 K/mcL (0.0-0.6); Hematocrit 28.9 % (37.5-50.1); Hemoglobin 9.4 g/dL (12.9-16.9); Immature Granulocytes % 0.8 % (0-4); Lymphocytes # 1.8 K/mcL (0.6-4.6); Lymphocytes % 14.8 %; Mean Corpuscular HGB Conc 32.5 g/dL (31.6-35.5); Mean Corpuscular Hemoglobin 29.2 pg (28.0-33.3); Mean Corpuscular Volume 89.8 fL (83.0-100.0); Mean Platelet Volume 10.9 fL (9.4-12.4); Monocytes # 1.3 K/mcL (0.0-1.3); Monocytes % 11.1 %; Neutrophils # 8.5 K/mcL (1.6-8.9); Platelet Count 267 K/mcL (140-400); Red Blood Count 3.22 M/mcL (4.19-5.50); Red Cell Distribution Width 14.1 % (11.5-14.5); Segmented Neutrophils % 70.9 %
[2016-03-31 06:43] LABS: Alanine Aminotransferase 12 Units/L (0-55); Albumin 2.7 g/dL (3.5-5.0); Albumin/Globulin Ratio 0.9 (1.1-2.2); Alkaline Phosphatase 87 Units/L (38-126); Aspartate Amino Transferase 18 Units/L (5-34); BUN/Creatinine Ratio 13 (6-26); Bilirubin,Total 0.4 mg/dL (0.2-1.2); Blood Urea Nitrogen 17 mg/dL (8-26); Calcium 8.8 mg/dL (8.6-10.8); Carbon Dioxide 21 mEq/L (19-29); Chloride 111 mEq/L (98-109); Glucose 114 mg/dL (70-99); Osmolality,Calculated 292 (280-300); Potassium 4.2 mEq/L (3.5-4.5); Sodium 140 mEq/L (136-145); Total Protein 5.7 g/dL (6.0-8.3); eGFR For African Americans > 60 (> 60); eGFR For Non-African Americans 51 (> 60)
[2016-03-31] MEDS: Pantoprazole 40 MG VIAL IVP SCH (09:01)
[2016-03-31] MEDS: Aspirin 81 MG TAB.CHEW PO SCH (09:02)
--- NOTE | 2016-03-31 11:33 | Cardiology Consult Note ---
<Horacio Fuentes R - Last Filed: 03/31/16 11:30> Date of Encounter: 03/31/16 Time of Encounter: 11:30 Assessment and Plan (1) Severe aortic stenosis Current Visit: Yes Status: Acute Echo shows EF 65-70%. Mild LVH, mild diastolic dysfunction, severely calcified probable trileaflet aortic valve with reduced excursion. Severe aortic stenosis , MG 41mmHg, PV 4.02. Mild pulmonary hypertension. Pt reports chest pain that started night, has been intermittent. Reports dizziness recently, but denies any syncopal episodes. Code status is DNR-CCA-DNI. Discussed at length with pt and family their options--which include LHC saturday for ischemic/pre-op evaluation, then referral to [facility] for TAVR evaluation. The other option would be medical management/observation with no intervention. R/B/ A to both options were discussed. They wish to continue thinking about this before making a final decision. If he decides to proceed with LHC, will plan for Saturday. (2) Chest pain Current Visit: Yes Status: Acute Troponins negative x 3. Found to have severe , plan as above. Possible LHC Saturday vs. medical management. Await pt decision. No previous ischemic evaluation. Qualifiers: Chest pain type: unspecified Qualified Code(s): R07.9 - Chest pain, unspecified Discussion w patient/family: The assessment and plan as outlined above was discussed with the patient and/or family members who expressed understanding and agreement. All questions were answered. Thank you for involving us in the care of your patient. Please call with any questions. I will discuss all the above with Dr. Monk and make changes as necessary. History of Present Illness Consult date: 03/31/16 Requesting physician: Ronen Flores Consult reason: Severe Chief complaint: Chest pain, dizziness History of present illness: Mr. Quevedo is a 85 year old male with PMHx significant for HTN, HLD. Patient states that he came to the ED with CC of chest pain that started night. He describes the CP as sharp, diffuse and radiating to his left arm and left shoulder. When the pain started, it was a 10/10 but currently is pain free. It has been intermittent. His son gave him 325 ASA which relieved the pain. Patient states that he never had anything like this before. Taking a deep breath made the pain worse. He denies Nausea, vomiting, diarrhea. He reported subjective fever and chills--recent teeth extraction and found to have dental abscess. He reports mild dizziness. About three months ago he reports that he had an episode of falling back on the bed after getting up out of bed too quickly. Other than this, he reports no history of falls or syncope. Sometimes, he has trouble walking and says he is "wobbly." Patient has mild shortness of breath. Echo was obtained--shows EF 65-70%. Mild LVH, mild diastolic dysfunction , severely calcified probable trileaflet aortic valve with reduced excursion. Severe aortic stenosis, MG 41mmHg, PV 4.02. Mild pulmonary hypertension. Past Med Surg Social Fam HX - Past Medical History Medical history: hyperlipidemia, hypertension Psychiatric history: no psych history - Past Surgical History Surgical History: herniorrhaphy - Social History Smoking Status: Never smoker Smokeless Tobacco Status: No Alcohol use: none Drug use: none Medications and Allergies Amlodipine Besylate 5 mg PO DAILY 03/29/16 [History] Lovastatin 10 mg PO DAILY 03/29/16 [History] Metoprolol Tartrate 50 mg PO BID 03/29/16 [History] Allergies No Known Allergies Allergy (Verified 03/29/16 08:19) All Systems Review: A 10-system review of systems was performed and is negative for pertinent findings except as documented above in the HPI. - Constitutional Constitutional: chills, fever(s) - Cardiovascular Cardiovascular: as per HPI, chest pain at rest, chest pain with exertion, dyspnea on exertion, lightheadedness - Respiratory Respiratory: dyspnea Physical Examination Vital Signs, Last 4 Hours Temp Pulse Resp BP Pulse Ox 03/31/16 11:16 97.8 F 77 18 134/88 95 03/31/16 08:00 94 L Vital Signs Temp Pulse Resp BP Pulse Ox 03/31/16 11:16 97.8 F 77 18 134/88 95 03/31/16 08:00 94 L 03/31/16 07:03 98.1 F 81 16 144/73 94 L 03/31/16 05:11 98.0 F 73 15 138/82 97 03/30/16 20:36 98.2 F 89 17 133/75 96 03/30/16 15:00 94 19 149/87 96 Intake and Output 03/30/16 03/31/16 03/31/16 23:59 07:59 15:59 Intake Total 1100 / 1100 100 / 100 360 / 360 Output Total 1025 / 1025 150 / 150 Balance 75 / 75 -50 / -50 360 / 360 Intake: IV Fluids 1100 / 1100 100 / 100 0.9 % Sodium Chloride 1, 1000 / 1000 000 ML @ 70 mls/hr IVC . [id number] [facility] Rx#: [id number] Zosyn 3.375 GM In 100 / 100 100 / 100 Dextrose 5% (Minibag+) 100 ML 100 ML @ 25 mls/hr IVPB Q8HR [facility] Rx#: [id number] Oral 360 / 360 Output: Urine 1025 / 1025 150 / 150 Other: Meal Breakfast Percent of Meal Consumed 100% General: Conversant, No Apparent Distress HEENT: Atraumatic, Normocephaly, Mucus Membranes Moist Neck: No JVD, Normal carotid pulses Cardiac: Reg Rate and Rhythm, Other (Grade 3/6 DUSTIN) Lungs: Normal Breath Sounds, No Wheeze, Rales, Rhonchi Neuro: Alert and responsive, No focal deficits noted Abdomen: Soft, Non-Tender Skin: No rashes noted on visualized skin Musculoskeletal: No Chest Wall Tenderness Extremities: No Clubbing, No Cyanosis, No Edema, Normal Pulses Results 03/31/16 05:38 03/31/16 05:38 Lab Results 03/31/16 03/31/16 05:38 05:38 WBC 11.9 H Hgb 9.4 L Hct 28.9 L Plt Count 267 Sodium 140 Potassium 4.2 Chloride 111 H Carbon Dioxide 21 BUN 17 Creatinine 1.32 H Glucose 114 H Calcium 8.8 Total Bilirubin 0.4 AST 18 ALT 12 Alkaline Phosphatase 87 Active Medications Acetaminophen (Tylenol) 650 mg PO Q6HR PRN PRN Reason: Mild Pain (1-3) Stop: 09/28/16 05:56 Aspirin (Aspirin) 81 mg PO DAILY [facility] Stop: 09/28/16 09:01 Last Admin: 03/31/16 09:02 Dose: 81 mg Bisacodyl (Dulcolax) 10 mg RC DAILY PRN PRN Reason: Constipation Stop: 09/29/16 10:53 Heparin Sodium (Porcine) (Heparin) 5,000 unit SQ Q8HCO [facility] Stop: 09/28/16 06:25 Last Admin: 03/31/16 06:42 Dose: Not Given Piperacillin Sod/Tazobactam (Sod 3.375 gm/ Dextrose) 100 mls @ 25 mls/hr IVPB Q8HR [facility] PRN Reason: Protocol Stop: 09/28/16 16:01 Last Admin: 03/31/16 09:00 Dose: 25 mls/hr Levofloxacin/Dextrose (Levaquin 750mg/150 Ml) 750 mg in 150 mls @ 100 mls/hr IVPB Q48H [facility] Stop: 09/30/16 13:01 Magnesium Hydroxide (Milk Of Magnesia Conc) 10 ml PO DAILY PRN PRN Reason: Constipation Stop: 09/29/16 12:09 Morphine Sulfate (Morphine Sulfate) 2 mg IVP Q2H PRN PRN Reason: moderate to severe chest pain Stop: 09/28/16 06:19 Naloxone HCl (Narcan) 0.4 mg IVP Q2MIN PRN PRN Reason: Opioid Reversal Stop: 09/28/16 05:56 Nitroglycerin (Nitroglycerin) 0.4 mg SL Q5MIN PRN PRN Reason: Chest Pain Stop: 09/28/16 05:54 Last Admin: 03/29/16 07:19 Dose: 0.4 mg Ondansetron HCl (Zofran) 4 mg IVP Q8HR PRN PRN Reason: Nausea And Vomiting Stop: 09/28/16 05:56 Last Admin: 03/29/16 21:49 Dose: 4 mg Pantoprazole Sodium (Protonix) 40 mg IVP DAILY [facility] Stop: 09/28/16 09:01 Last Admin: 03/31/16 09:01 Dose: 40 mg Simvastatin (Zocor) 10 mg PO DAILY [facility] Stop: 09/28/16 09:01 Last Admin: 03/31/16 09:02 Dose: 10 mg - Imaging and Cardiology Echo: report reviewed (EF 65-70%. Mild LVH, mild diastolic dysfunction, severely calcified probable trileaflet aortic valve with reduced excursion. Severe aortic stenosis, MG 41mmHg, PV 4.02. Mild pulmonary hypertension.) - EKG Interpretation EKG results cardiology: personally reviewed (SR, RBBB.) Consult Discharge Plan - Plan [facility]errals: [facility] [Primary Care Provider[facility] - <Casey Monk G - Last Filed: 03/31/16 12:06> Date of Encounter: 03/31/16 Assessment and Plan Discussion w patient/family: The assessment and plan as outlined above was discussed with the patient and/or family members who expressed understanding and agreement. All questions were answered. Thank you for involving us in the care of your patient. Please call with any questions. History of Present Illness History of present illness: Mr. Quevedo is a 85 year old male All Systems Review: A 10-system review of systems was performed and is negative for pertinent findings except as documented above in the HPI. Physical Examination Vital Signs, Last 4 Hours Temp Pulse Resp BP Pulse Ox 03/31/16 11:16 97.8 F 77 18 134/88 95 Results 03/31/16 05:38 03/31/16 05:38 Lab Results 03/31/16 03/31/16 05:38 05:38 WBC 11.9 H Hgb 9.4 L Hct 28.9 L Plt Count 267 Sodium 140 Potassium 4.2 Chloride 111 H Carbon Dioxide 21 BUN 17 Creatinine 1.32 H Glucose 114 H Calcium 8.8 Total Bilirubin 0.4 AST 18 ALT 12 Alkaline Phosphatase 87 - Attending Attestation For this encounter, I have reviewed the ENDOSCOPY NURSE or PA documentation, treatment plan, and medical decision making; and I have had face to face time with this patient. Pt has symptoms of angina echo showed severe , which may be contributing to symptoms VSS JVD: 6 cm Chest : clear CVS: [place], late peaking , no changes with resp plan: will need a L heart cath possibly Saturday if pt and family are in agreement maybe a candidate for TAVR in the future Thanks
[2016-03-31] MEDS: Levofloxacin 750 MG/150 ML 750 MG/150 ML BAG IVPB SCH (14:02)
--- NOTE | 2016-03-31 16:44 | Internal Med Progress Note ---
Date of Encounter: 03/31/16 Time of Encounter: 16:40 - Assessment and plan (1) SIRS (systemic inflammatory response syndrome) Current Visit: Yes Status: Acute Assessment and plan: meet 2/3 criteria. possible source is dental abscess. on Zosyn and Levaquin ( Day 2) tolerating well. blood culture negative so far. patient claims that he is much better. noted that WBC trending down. 03/31/2016 Day 3 antibiotics ( Levaquin and Zosyn) WBC trending down and near normal. examination of oral cavity also suggestive of clearing pus blood culture : no growth so far. will continue abx for now (2) DINA (acute kidney injury) Current Visit: Yes Status: Acute Assessment and plan: improving DINA received contrast and will keep close monitoring. 03/31/2016 improving DINA creat trending down. (3) Aortic stenosis Current Visit: Yes Status: Acute Assessment and plan: severe aortic stenosis will get cardio for possible recommendation for TAVR as outpatient. 03/31/2016 cardiology on boardand will follow their opinion Qualifiers: Cardiac valve disease etiology: etiology unspecified Qualified Code(s): I35.0 - Nonrheumatic aortic (valve) stenosis (4) HTN (hypertension) Current Visit: Yes Status: Acute Assessment and plan: stable for now Qualifiers: Hypertension type: essential hypertension Qualified Code(s): I10 - Essential (primary) hypertension - Subjective Interval history: seen and examined. patient feels much better. no new complaints. ECHO findings noted. 03/31/2016 feeling better cardiology on board for severe aortic stenosis no new development in last 24 hours. - Constitutional Vitals: Temp Pulse Resp BP Pulse Ox 97.7 F 80 16 144/83 97 03/31/16 15:30 03/31/16 15:30 03/31/16 15:30 03/31/16 15:30 03/31/16 15:30 General appearance: Present: A&O X 3, pleasant, no acute distress, answers questions appropriately - Head Head exam: Present: atraumatic, normocephalic - Eye Eye exam: Present: PERRL, conjuntiva pink, sclera anicteric Pupils: Present: PERRL - Neck Neck exam general surgery: Present: supple, trachea midline. Absent: lymphadenopathy - Respiratory Respiratory exam: Present: CTAB. Absent: accessory muscle use, rales, rhonchi, wheezes - Cardiovascular Cardiovascular exam: Present: RRR, +S1, +S2. Absent: diastolic murmur, gallop, rubs, systolic murmur - GI/Abdominal GI/Abdominal exam: Present: normal bowel sounds, soft, no peritoneal signs. Absent: distended, tenderness - Extremities Exam Extremities exam: Present: warm, radial pulses palpable and symetrical. Absent : calf tenderness, cyanotic, pedal edema - Neurological Exam Neurological exam: Present: CN II-XII intact, oriented X3, no focal deficits. Absent: pronater drift, facial droop, speech deficit - Skin Skin exam: Present: dry, intact Internal Medicine: Result - Labs CBC & Chem 7: 03/31/16 05:38 03/31/16 05:38 Labs: Short CBC 03/31/16 Range/Units 05:38 WBC 11.9 H (4.3-11.1) K/mcL Hgb 9.4 L (12.9-16.9) g/dL Hct 28.9 L (37.5-50.1) % Plt Count 267 (140-400) K/mcL Neutrophils # 8.5 (1.6-8.9) K/mcL BMP 03/31/16 05:38 Sodium 140 Potassium 4.2 Chloride 111 H Carbon Dioxide 21 BUN 17 Creatinine 1.32 H Glucose 114 H Calcium 8.8 Liver Function 03/31/16 Range/Units 05:38 Total Bilirubin 0.4 (0.2-1.2) mg/dL AST 18 (5-34) Units/L ALT 12 (0-55) Units/L Alkaline Phosphatase 87 (38-126) Units/L Albumin 2.7 L (3.5-5.0) g/dL - ABG Interpretation ABG results: PT/INR, D-dimer D-Dimer 395 ng/mLFEU (0-500) 03/29/16 09:04 Consult Discharge Plan - Plan [facility]errals: [facility] [Primary Care Provider] -
[2016-04-01 05:43] LABS: Basophils # 0.1 K/mcL (0.0-0.2); Basophils % 0.6 %; Eosinophils # 0.6 K/mcL (0.0-0.6); Eosinophils % 6.6 %; Hematocrit 30.6 % (37.5-50.1); Hemoglobin 9.9 g/dL (12.9-16.9); Immature Granulocytes % 0.7 % (0-4); Lymphocytes # 1.8 K/mcL (0.6-4.6); Lymphocytes % 18.6 %; Mean Corpuscular HGB Conc 32.4 g/dL (31.6-35.5); Mean Corpuscular Hemoglobin 28.9 pg (28.0-33.3); Mean Corpuscular Volume 89.5 fL (83.0-100.0); Mean Platelet Volume 10.5 fL (9.4-12.4); Monocytes % 10.7 %; Platelet Count 313 K/mcL (140-400); Red Blood Count 3.42 M/mcL (4.19-5.50); Red Cell Distribution Width 14.2 % (11.5-14.5); Segmented Neutrophils % 62.8 %
[2016-04-01 06:00] LABS: Alanine Aminotransferase 17 Units/L (0-55); Albumin 2.7 g/dL (3.5-5.0); Albumin/Globulin Ratio 0.8 (1.1-2.2); Alkaline Phosphatase 89 Units/L (38-126); Aspartate Amino Transferase 21 Units/L (5-34); BUN/Creatinine Ratio 11 (6-26); Bilirubin,Total 0.4 mg/dL (0.2-1.2); Blood Urea Nitrogen 15 mg/dL (8-26); Calcium 9.5 mg/dL (8.6-10.8); Carbon Dioxide 23 mEq/L (19-29); Chloride 110 mEq/L (98-109); Globulin 3.2 g/dL (2.4-3.5); Glucose 111 mg/dL (70-99); Osmolality,Calculated 294 (280-300); Potassium 4.5 mEq/L (3.5-4.5); Sodium 141 mEq/L (136-145); Total Protein 5.9 g/dL (6.0-8.3); eGFR For African Americans > 60 (> 60); eGFR For Non-African Americans 50 (> 60)
[2016-04-01] MEDS: *HR* Heparin 5,000 UNIT/ML VIAL SQ SCH ×2 (06:42→15:58)
[2016-04-01] MEDS: Piperacillin/Tazobactam 3.375 GM in D5% in Water (Mini-Bag+) 100 ML IVPB SCH ×2 (08:33→15:58)
[2016-04-01] MEDS: Pantoprazole 40 MG VIAL IVP SCH (08:34)
[2016-04-01] MEDS: Aspirin 81 MG TAB.CHEW PO SCH (08:34)
--- NOTE | 2016-04-01 09:35 | Cardiology Progress Note ---
Date of Encounter: 04/01/16 Time of Encounter: 09:32 Assessment and Plan (1) Severe aortic stenosis Current Visit: Yes Status: Acute Echo shows EF 65-70%. Mild LVH, mild diastolic dysfunction, severely calcified probable trileaflet aortic valve with reduced excursion. Severe aortic stenosis , MG 41mmHg, PV 4.02. Mild pulmonary hypertension. Pt reports chest pain that started night, has been intermittent. Reports dizziness recently, but denies any syncopal episodes. Code status is DNR-CCA-DNI. Pt would not be a candidate for open AVR given his advanced age--possibly a candidate for TAVR. Discussed at length with pt and family their options--which include LHC saturday for ischemic/pre-op evaluation, then referral to [facility] for TAVR evaluation. The other option would be medical management/observation with no intervention. R/B/ A to both options were discussed. Pt alone in room this AM and states it was discussed and he has decided to proceed with LHC and referral for TAVR. He verbalizes understanding of risks. Son is POA, but pt is competent to make his own decisions. NPO after midnight for LHC tomorrow. (2) Chest pain Current Visit: Yes Status: Acute Troponins negative x 3. Found to have severe , plan as above. LHC tomorrow. No previous ischemic evaluation. Was chest pain free overnight. Qualifiers: Chest pain type: unspecified Qualified Code(s): R07.9 - Chest pain, unspecified (3) CKD (chronic kidney disease) stage 3, GFR 30-59 ml/min Current Visit: Yes Status: Acute Renal function has remained stable during stay. Management per primary team. Will monitor closely after LHC. Discussion w patient/family: The assessment and plan as outlined above was discussed with the patient and/or family members who expressed understanding and agreement. All questions were answered. Thank you for involving us in the care of your patient. Please call with any questions. I will discuss all the above with Dr. Monk and make changes as necessary. Subjective Principal diagnosis: Severe Interval history: Pt resting comfortably in bed, denies any chest pain or dyspnea overnight. No acute complaints. Objective Vital Signs, Last 4 Hours Temp Pulse Resp BP Pulse Ox 04/01/16 08:00 98 04/01/16 07:52 98 F 70 16 140/74 98 Vital Signs Temp Pulse Resp BP Pulse Ox 04/01/16 08:00 98 04/01/16 07:52 98 F 70 16 140/74 98 04/01/16 04:00 98.0 F 78 16 133/70 94 L 03/31/16 20:00 97.7 F 80 16 150/79 96 03/31/16 15:30 97.7 F 80 16 144/83 97 03/31/16 11:16 97.8 F 77 18 134/88 95 Intake and Output 03/31/16 04/01/16 04/01/16 23:59 07:59 15:59 Intake Total 340 / 340 100 / 100 Output Total 875 / 875 500 / 500 Balance -535 / -535 -400 / -400 Intake: IV Fluids 100 / 100 100 / 100 Zosyn 3.375 GM In 100 / 100 100 / 100 Dextrose 5% (Minibag+) 100 ML 100 ML @ 25 mls/hr IVPB Q8HR [facility] Rx#: [id number] Oral 240 / 240 Output: Urine 875 / 875 500 / 500 Other: Meal Dinner Percent of Meal Consumed 50% Stool Size Moderate Stool Consistency soft formed Weight 63 kg Patient Weight 04/01/16 23:59 Weight 63 kg General: Conversant, No Apparent Distress HEENT: Atraumatic, Normocephaly, Mucus Membranes Moist Neck: No JVD, Normal carotid pulses Cardiac: Reg Rate and Rhythm, Other (grade 3/6 DUSTIN) Lungs: Normal Breath Sounds, No Wheeze, Rales, Rhonchi Neuro: Alert and responsive, No focal deficits noted Abdomen: Soft, Non-Tender Skin: No rashes noted on visualized skin Musculoskeletal: No Chest Wall Tenderness Extremities: No Clubbing, No Cyanosis, No Edema, Normal Pulses Results 04/01/16 05:14 04/01/16 05:14 Lab Results 04/01/16 04/01/16 05:14 05:14 WBC 9.6 Hgb 9.9 L Hct 30.6 L Plt Count 313 Sodium 141 Potassium 4.5 Chloride 110 H Carbon Dioxide 23 BUN 15 Creatinine 1.36 H Glucose 111 H Calcium 9.5 Total Bilirubin 0.4 AST 21 ALT 17 Alkaline Phosphatase 89 Short CBC 04/01/16 Range/Units 05:14 WBC 9.6 (4.3-11.1) K/mcL Hgb 9.9 L (12.9-16.9) g/dL Hct 30.6 L (37.5-50.1) % Plt Count 313 (140-400) K/mcL Neutrophils # 6.0 (1.6-8.9) K/mcL BMP 04/01/16 Range/Units 05:14 Sodium 141 (136-145) mEq/L Potassium 4.5 (3.5-4.5) mEq/L Chloride 110 H (98-109) mEq/L Carbon Dioxide 23 (19-29) mEq/L BUN 15 (8-26) mg/dL Creatinine 1.36 H (0.72-1.25) mg/dL Glucose 111 H (70-99) mg/dL Calcium 9.5 (8.6-10.8) mg/dL Liver Function 04/01/16 Range/Units 05:14 Total Bilirubin 0.4 (0.2-1.2) mg/dL AST 21 (5-34) Units/L ALT 17 (0-55) Units/L Alkaline Phosphatase 89 (38-126) Units/L Albumin 2.7 L (3.5-5.0) g/dL Active Medications Acetaminophen (Tylenol) 650 mg PO Q6HR PRN PRN Reason: Mild Pain (1-3) Stop: 09/28/16 05:56 Aspirin (Aspirin) 81 mg PO DAILY [facility] Stop: 09/28/16 09:01 Last Admin: 04/01/16 08:34 Dose: 81 mg Bisacodyl (Dulcolax) 10 mg RC DAILY PRN PRN Reason: Constipation Stop: 09/29/16 10:53 Heparin Sodium (Porcine) (Heparin) 5,000 unit SQ Q8HCO [facility] Stop: 09/28/16 06:25 Last Admin: 04/01/16 06:42 Dose: 5,000 unit Piperacillin Sod/Tazobactam (Sod 3.375 gm/ Dextrose) 100 mls @ 25 mls/hr IVPB Q8HR [facility] PRN Reason: Protocol Stop: 09/28/16 16:01 Last Admin: 04/01/16 08:33 Dose: 25 mls/hr Levofloxacin/Dextrose (Levaquin 750mg/150 Ml) 750 mg in 150 mls @ 100 mls/hr IVPB Q48H [facility] Stop: 09/30/16 13:01 Last Admin: 03/31/16 14:02 Dose: 100 mls/hr Magnesium Hydroxide (Milk Of Magnesia Conc) 10 ml PO DAILY PRN PRN Reason: Constipation Stop: 09/29/16 12:09 Morphine Sulfate (Morphine Sulfate) 2 mg IVP Q2H PRN PRN Reason: moderate to severe chest pain Stop: 09/28/16 06:19 Naloxone HCl (Narcan) 0.4 mg IVP Q2MIN PRN PRN Reason: Opioid Reversal Stop: 09/28/16 05:56 Nitroglycerin (Nitroglycerin) 0.4 mg SL Q5MIN PRN PRN Reason: Chest Pain Stop: 09/28/16 05:54 Last Admin: 03/29/16 07:19 Dose: 0.4 mg Ondansetron HCl (Zofran) 4 mg IVP Q8HR PRN PRN Reason: Nausea And Vomiting Stop: 09/28/16 05:56 Last Admin: 03/29/16 21:49 Dose: 4 mg Pantoprazole Sodium (Protonix) 40 mg IVP DAILY [facility] Stop: 09/28/16 09:01 Last Admin: 04/01/16 08:34 Dose: 40 mg Simvastatin (Zocor) 10 mg PO DAILY [facility] Stop: 09/28/16 09:01 Last Admin: 04/01/16 08:34 Dose: 10 mg - Imaging and Cardiology Echo: report reviewed - EKG Interpretation EKG results cardiology: other (12 hour tele AVG HR 75, no significant pauses or arrhythmias, SR) Consult Discharge Plan - Plan [facility]errals: [facility] [Primary Care Provider] -
--- NOTE | 2016-04-01 17:44 | Internal Med Progress Note ---
Date of Encounter: 04/01/16 Time of Encounter: 17:42 - Assessment and plan (1) SIRS (systemic inflammatory response syndrome) Current Visit: Yes Status: Acute Assessment and plan: meet 2/3 criteria. possible source is dental abscess. on Zosyn and Levaquin ( Day 2) tolerating well. blood culture negative so far. patient claims that he is much better. noted that WBC trending down. 03/31/2016 Day 3 antibiotics ( Levaquin and Zosyn) WBC trending down and near normal. examination of oral cavity also suggestive of clearing pus blood culture : no growth so far. will continue abx for now 04/01/2016 Day 4 antibiotics will start decelerating abx from tomorrow feeling much better no toothache eating well WBC with in normal limit (2) DINA (acute kidney injury) Current Visit: Yes Status: Acute Assessment and plan: improving DINA received contrast and will keep close monitoring. 03/31/2016 improving DINA creat trending down. 04/01/2016 resolved DINA (3) Aortic stenosis Current Visit: Yes Status: Acute Assessment and plan: severe aortic stenosis will get cardio for possible recommendation for TAVR as outpatient. 03/31/2016 cardiology on boardand will follow their opinion 04/01/2016 noted patient is scheduled for cath tomorrow Qualifiers: Cardiac valve disease etiology: etiology unspecified Qualified Code(s): I35.0 - Nonrheumatic aortic (valve) stenosis (4) HTN (hypertension) Current Visit: Yes Status: Acute Assessment and plan: stable for now Qualifiers: Hypertension type: essential hypertension Qualified Code(s): I10 - Essential (primary) hypertension - Subjective Interval history: seen and examined. patient feels much better. no new complaints. ECHO findings noted. 03/31/2016 feeling better cardiology on board for severe aortic stenosis no new development in last 24 hours. 04/01/2016 feeling much better no toothache eating well WBC with in normal limit - Constitutional Vitals: Temp Pulse Resp BP Pulse Ox 97.5 F L 74 16 159/82 95 04/01/16 15:00 04/01/16 15:00 04/01/16 15:00 04/01/16 15:00 04/01/16 15:00 General appearance: Present: A&O X 3, pleasant, no acute distress, answers questions appropriately - Head Head exam: Present: atraumatic, normocephalic - Eye Eye exam: Present: PERRL, conjuntiva pink, sclera anicteric Pupils: Present: PERRL - Neck Neck exam general surgery: Present: supple, trachea midline. Absent: lymphadenopathy - Respiratory Respiratory exam: Present: CTAB. Absent: accessory muscle use, rales, rhonchi, wheezes - Cardiovascular Cardiovascular exam: Present: RRR, +S1, +S2. Absent: diastolic murmur, gallop, rubs, systolic murmur - GI/Abdominal GI/Abdominal exam: Present: normal bowel sounds, soft, no peritoneal signs. Absent: distended, tenderness - Extremities Exam Extremities exam: Present: warm, radial pulses palpable and symetrical. Absent : calf tenderness, cyanotic, pedal edema - Neurological Exam Neurological exam: Present: CN II-XII intact, oriented X3, no focal deficits. Absent: pronater drift, facial droop, speech deficit - Skin Skin exam: Present: dry, intact Internal Medicine: Result - Labs CBC & Chem 7: 04/01/16 05:14 04/01/16 05:14 Labs: Short CBC 04/01/16 Range/Units 05:14 WBC 9.6 (4.3-11.1) K/mcL Hgb 9.9 L (12.9-16.9) g/dL Hct 30.6 L (37.5-50.1) % Plt Count 313 (140-400) K/mcL Neutrophils # 6.0 (1.6-8.9) K/mcL BMP 04/01/16 05:14 Sodium 141 Potassium 4.5 Chloride 110 H Carbon Dioxide 23 BUN 15 Creatinine 1.36 H Glucose 111 H Calcium 9.5 Liver Function 04/01/16 Range/Units 05:14 Total Bilirubin 0.4 (0.2-1.2) mg/dL AST 21 (5-34) Units/L ALT 17 (0-55) Units/L Alkaline Phosphatase 89 (38-126) Units/L Albumin 2.7 L (3.5-5.0) g/dL - ABG Interpretation ABG results: PT/INR, D-dimer D-Dimer 395 ng/mLFEU (0-500) 03/29/16 09:04 Consult Discharge Plan - Plan [facility]errals: [facility] [Primary Care Provider] -
[2016-04-02] MEDS: *HR* Heparin 5,000 UNIT/ML VIAL SQ SCH ×4 (00:07→23:51)
[2016-04-02] MEDS: Piperacillin/Tazobactam 3.375 GM in D5% in Water (Mini-Bag+) 100 ML IVPB SCH ×4 (00:11→23:52)
[2016-04-02 04:49] LABS: Basophils # 0.1 K/mcL (0.0-0.2); Basophils % 0.8 %; Eosinophils # 0.8 K/mcL (0.0-0.6); Eosinophils % 6.2 %; Hematocrit 31.3 % (37.5-50.1); Hemoglobin 10.3 g/dL (12.9-16.9); Immature Granulocytes % 0.9 % (0-4); Lymphocytes # 2.5 K/mcL (0.6-4.6); Lymphocytes % 20.5 %; Mean Corpuscular HGB Conc 32.9 g/dL (31.6-35.5); Mean Corpuscular Hemoglobin 28.9 pg (28.0-33.3); Mean Corpuscular Volume 87.9 fL (83.0-100.0); Mean Platelet Volume 10.4 fL (9.4-12.4); Monocytes # 1.1 K/mcL (0.0-1.3); Neutrophils # 7.6 K/mcL (1.6-8.9); Platelet Count 345 K/mcL (140-400); Red Blood Count 3.56 M/mcL (4.19-5.50); Segmented Neutrophils % 62.6 %
[2016-04-02 05:08] LABS: Alanine Aminotransferase 17 Units/L (0-55); Albumin 2.9 g/dL (3.5-5.0); Albumin/Globulin Ratio 0.9 (1.1-2.2); Alkaline Phosphatase 96 Units/L (38-126); Aspartate Amino Transferase 21 Units/L (5-34); BUN/Creatinine Ratio 10 (6-26); Bilirubin,Total 0.4 mg/dL (0.2-1.2); Blood Urea Nitrogen 13 mg/dL (8-26); Calcium 9.9 mg/dL (8.6-10.8); Carbon Dioxide 22 mEq/L (19-29); Chloride 110 mEq/L (98-109); Globulin 3.3 g/dL (2.4-3.5); Glucose 99 mg/dL (70-99); Osmolality,Calculated 290 (280-300); Potassium 4.3 mEq/L (3.5-4.5); Sodium 140 mEq/L (136-145); Total Protein 6.2 g/dL (6.0-8.3); eGFR For African Americans > 60 (> 60); eGFR For Non-African Americans 51 (> 60)
[2016-04-02] MEDS: Aspirin 81 MG TAB.CHEW PO SCH (08:28)
[2016-04-02] MEDS: Pantoprazole 40 MG VIAL IVP SCH (08:28)
[2016-04-02] MEDS ORDERED: 0.9 % Sodium Chloride 1,000 ML ONE ×2 (08:50→10:18)
[2016-04-02] MEDS ORDERED: *HR* Heparin 10,000 UNIT/10 ML VIAL ONE (08:50)
[2016-04-02] MEDS ORDERED: Heparin 1,000 UNITS/500 mL NS 500 ML ONE (08:50)
[2016-04-02 09:01] LABS: INR 1.2; Prothrombin Time 13.1 Seconds (9.4-12.1)
--- NOTE | 2016-04-02 09:55 | Event Note ---
Date of Encounter: 04/02/16 Time of Encounter: 09:30 - Cardiology Event Note Patient seen today with son at bedside. He denies any chest pain, short of breath, palpitations. Denies any concerns or complaints this morning. Remains agreeable to left heart catheterization. Agreeable to place hold on DNR DNI CCA status for procedure. All questions answered. Furtherrecommendations after catheterization. Anticipate will need referral to [facility] for consideration of TAVR.
[2016-04-02] MEDS ORDERED: *HR* FentaNYL (PF) 100 MCG/2 ML VIAL ONE (10:18)
[2016-04-02] MEDS ORDERED: *HR* Midazolam HCl 2 MG/2 ML VIAL ONE (10:18)
--- NOTE | 2016-04-02 10:31 | Pre-Sedation Evaluation ---
Pre-sedation evaluation - Pre-sedation checklist Date of procedure: 04/02/16 Procedure: Heart Cath Recent Vitals: Last Vital Signs Temp 98.0 F 04/02/16 08:31 Pulse 72 04/02/16 08:31 Resp 18 04/02/16 08:31 BP 152/76 04/02/16 08:31 Pulse Ox 95 04/02/16 08:00 H&P (including ROS) documented in medical record: Yes Previous reaction to sedatives/anesthetics: No Dietary Status: NPO after Midnight Dentition: No loose teeth or bridges Possible difficult airway: No ASA Classification *see protocol: CLASS III-Severe systemic disease Plan of Care: Pt appropriate candidate for procedure/moderate/conscious sedation , Risks/benefits of procedure/sedation discussed w/ patient/family, If not NPO; Risk of intake outweiged by necessity to perform procedure
[2016-04-02] MEDS ORDERED: Nitroglycerin 1,000 MCG/10 ML VIAL IV ONE (10:33)
[2016-04-02] MEDS ORDERED: *HR* Metoprolol 5 MG/5 ML VIAL IVP ONE (10:55)
--- NOTE | 2016-04-02 11:34 | Invasive Diagnostic Lab Proc ---
Name: Raymond Quevedo Date of Study: 04/02/2016 Date: 1930 Ht: 60.0in Medical Record#: [id number] Age: 85 Wt: 149.25lb Gender: Male BSA: 1.65 Order #: [id number] BMI: 29.15 Physicians Procedure Physician: Rico Faulkner MD Referring MD: Referring MD: Staff Name Position Time In Carlos Haider RN Clinical Specialty Rep 10:32 AM Sintia Hsieh RN Clinical Specialty Rep 10:32 AM Karrie Parrish RN Monitor 10:32 AM Tammi Peterson RT (R) 10:32 AM Carlos Haider RN Nurse 11:02 AM Indications Indication Unstable Angina Aortic stenosis Procedures Performed Procedure R\\T\\L HRT ART/VENTRICLE ANGIO Pre-Procedure Checklist Informed consent is complete signed and on chart. H\\T\\P is on chart. ID band is on and ID verified with patient. Patient NPO for procedure The procedure was described for the patient and questions were answered. Blood Pressure: 166/88 ECG is on chart. Rhythm: NSR Plan of Care Patient will tolerate the procedure without complications. Adequate level of comfort will be maintained. Hemodynamics will remain stable Patient will recover from procedure without complications. Respiratory function will be maintained. Cardiac rhythm will remain stable. Patient temperature will be maintained. Patient and/or family have verbalized understanding of the procedure. Patient Education Chief Complaint/Reason for Test: Cardiac Cath Developmental Category: Geriatric (65+ years) Developmentally Appropriate for Age: Yes Learning Barriers: None Education Needs: Procedure Education Method: Verbal Information Taught: Cardiac Cath Educational Evaluation: Able to repeat information Intravenous Access Time IV Size Location DC'd Fluid/Drip Rate Units RN 10:30 AM 20g 1 1/" Patent On Arrival Rt Arm 0.9NaCl 25 ml/hr Allergies NKA Vital Signs Time BP (mmHg) HR (bpm) O2 Sat. RR (bpm) LOC / % 5 = Fully awake and oriented or at pre-proc level 10:34 AM / % 5 = Fully awake and oriented or at pre-proc level 10:34 AM / % 4 = Oriented but drowsy 10:49 AM / % 4 = Oriented but drowsy 10:34 AM 166 / 88 87 100 % 16 10:39 AM 161 / 72 79 98 % 16 10:44 AM 142 / 79 88 100 % 17 10:49 AM 158 / 91 94 100 % 20 10:54 AM 169 / 94 87 100 % 18 10:56 AM 134 / 95 164 100 % 15 10:59 AM 162 / 81 84 98 % 17 11:04 AM 170 / 88 76 99 % 18 11:09 AM 177 / 101 84 100 % 23 11:13 AM 168 / 94 88 100 % 15 11:06 AM / % 4 = Oriented but drowsy Procedural Medications Time Medication Dose Units Method Given By 10:33 AM Oxygen 2 L/min nasal cannula Karrie Parrish RN 10:34 AM Versed 0.5 mg Intravenous Karrie Parrish RN 10:39 AM Lidocaine 2% 15 ml Subcutaneous Rico Faulkner MD 10:56 AM Lopressor 2.5 mg Intravenous Carlos Haider RN ASA Classification: CLASS III- Severe systemic disease (i.e. prior AMI, diabetes with vascular complications, morbid obesity) Imani Score Preprocedure Postprocedure Activity 2- Moves 4 extremities sustained head lift Activity 2- Moves 4 extremities sustained head lift Circulation 2- SBP +/= 20 points of pre-anesthetic level Circulation 2- SBP +/= 20 points of pre-anesthetic level Consciousness 2- Awake and alert oriented x 3 Consciousness 2- Awake and alert oriented x 3 O2 Saturation 2- Able to maintain O2 satruation of 92% on room air O2 Saturation 2- Able to maintain O2 satruation of 92% on room air Respiratory 2- Able to deep breathe and cough well Respiratory 2- Able to deep breathe and cough well Total Score 10 Total Score 10 Contrast Agent: Isovue Diagnostic Contrast: 59 ml Total Contrast: 59 ml Fluoro Dose: 80 mGy Procedure Log Time Note Enter By 10:32 AM Pt arrived to quality control lab tech 2 at 10:32 scoates 10:32 AM Physician arrived 10:32 scoates 10:32 AM Meet and greannemarie completed scoates 10:32 AM Sign in performed according to hospital policy. scoates 10:32 AM Procedure start 10:32 scoates 10:32 AM ASA Class CLASS III- Severe systemic disease (i.e. prior AMI, diabetes with vascular complications, morbid obesity) scoates 10:32 AM Carlos Haider RN Position: Clinical Specialty Rep Time in: 10:32 scoates 10:32 AM Sintia Hsieh RN Position: Clinical Specialty Rep Time in: 10:32 scoates 10:32 AM Karrie Parrish RN Position: Monitor Time in: 10:32 scoates 10:33 AM Tammi Peterson (R) Position: Time in: 10:32 scoates 10:33 AM Patient charges- Angio tray pack, Navilyst 3mm J, Pulse Oximetry and ACIST tubing and transducer scoates 10:33 AM Case Delayed No scoates 10:33 AM CathStat 10:33 AM Vitals capture started with the following parameters, Patient=Adult, Interval=5 min, Initial Lninrejo=330 mmHg, Deflation Rate=5 mmHg, Cuff placed on Left Leg 10:33 AM Recorded ECG: HR=85 Condition=Condition 1 10:34 AM Time: 10:33 Oxygen on at 2 L/min per nasal cannula by Karrie Parrish RN scoates :34 AM Time: :34 Versed 0.5 mg Intravenous Given by Karrie Parrish RN scoates :34 AM Time: 10:34 Patient comfortable and pain free: Yes scoates 10:34 AM Time: 10:34LOC: 5 = Fully awake and oriented or at pre-proc level scoates 10:34 AM HR=87 bpm, HBYW=805/88 mmhg, DpJ6=728.0 %, Resp=16 B/min, Comment=Sinus Rhythm 10:35 AM Clinical Presentation: Unstable angina scoates 10:36 AM Hair removed from procedure site in procedure lab using clippers. Bilateral groin prepped with Chloraprep by Tammi Peterson (R) then patient draped. Skin intact. scoates 10:39 AM Time out performed according to hospital policy scoates 10:39 AM HR=79 bpm, OOKT=871/72 mmhg, SpO2=98.0 %, Resp=16 B/min, Comment=Sinus Rhythm 10:39 AM Time: :39 15 ml Lidocaine 2% to left groin Subcutaneous Given by Rico Faulkner MD scoates 10:39 AM Access obtained by percutaneous puncture. 5Fr 10cm [place] sheath placed in left Femoral artery. [id number] scoates 10:40 AM 5Fr FR 4 catheter inserted over the wire [facility] scoates 10:41 AM Pressure channel 1 zeroed. 10:41 AM Recorded Pressure: Ao, HR=87, Condition=Condition 1 (Aorta) Ao 149/94/121 10:42 AM RCA angiography performed in multiple views. scoates 10:42 AM Catheter removed scoates 10:42 AM 5Fr FL 4 catheter inserted over the wire [facility] scoates 10:43 AM LCA angiography performed in multiple views. scoates 10:43 AM Recorded Pressure: Ao, HR=69, Condition=Condition 1 (Aorta) Ao 147/85/112 10:44 AM HR=88 bpm, BTHJ=412/79 mmhg, RmR7=395.0 %, Resp=17 B/min, Comment=Sinus Rhythm 10:46 AM Catheter removed scoates 10:47 AM Pressure channel 1 zeroed. 10:47 AM Recorded Pressure: LV, HR=88, Condition=Condition 1 (Left Ventricle) LV 190/-4/18 10:47 AM 5Fr Pigtail catheter inserted over the wire [facility] scoates 10:47 AM Catheter selectively placed in left ventricle scoates 10:47 AM Bolus angiogram of left Ventricle complete: 7 ml/sec for a total of 21 mls scoates 10:48 AM Recorded Pressure: LV, Ao, HR=92, Condition=Condition 1 (Left Ventricle) LV 189/-1/20, (Aorta) Ao 174/82/121 10:49 AM Coronary Dominance: Left scoates 10:49 AM Catheter removed scoates 10:49 AM HR=94 bpm, TJCW=703/91 mmhg, OgF1=648.0 %, Resp=20 B/min, Comment=Sinus Rhythm 10:49 AM Lesion found in LMCA. Pre Stenosis: 70 Pre DEVORA Flow: scoates 10:49 AM Lesion found in Mid RCA. Pre Stenosis: 20 Pre DEVORA Flow: scoates 10:49 AM Time: 10:34 Patient comfortable and pain free: Yes scoates 10:49 AM Time: 10:34LOC: 4 = Oriented but drowsy scoates 10:50 AM Lesion found in Proximal LAD. Pre Stenosis: 20 Pre DEVORA Flow: scoates 10:50 AM Lesion found in Proximal Circumflex. Pre Stenosis: 50 Pre DEVORA Flow: scoates 10:50 AM Lesion found in Ramus. Pre Stenosis: 20 Pre DEVORA Flow: scoates 10:51 AM left heart cath complete, now moving to right heart cath scoates 10:54 AM HR=87 bpm, RTBZ=570/94 mmhg, FoX1=789.0 %, Resp=18 B/min, Comment=Sinus Rhythm 10:55 AM Access obtained by percutaneous puncture. 7Fr 11cm Cordis [place] sheath placed in left Femoral vein. [id number] scoates 10:55 AM 7 F [facility] [place] 'S' tip inserted through venous sheath scoates 10:55 AM patients rhythm has changed to SVT scoates 10:56 AM Recorded Pressure: Ao, IT=608, Condition=Condition 1 (Aorta) Ao -7/-7/-7 10:56 AM NIBP STAT measurement started. 10:56 AM UQ=994 bpm, OWDW=959/95 mmhg, VuK3=937.0 %, Resp=15 B/min, Comment=svt 10:56 AM Time: 10:56 Lopressor 2.5 mg Intravenous Given by Carlos Haider RN scoates 10:58 AM Recorded Pressure: PCW, HR=86, Condition=Condition 1 (Pulmonary Capillary Wedge) PCW 25/25/19 10:59 AM Recorded Pressure: MPA, HR=86, Condition=Condition 1 (Main Pulmonary Artery) MPA 36/18/26 10:59 AM HR=84 bpm, OICE=931/81 mmhg, SpO2=98.0 %, Resp=17 B/min, Comment=Sinus Rhythm 11:00 AM Recorded Pressure: MPA, HR=83, Condition=Condition 1 (Main Pulmonary Artery) MPA 47/18/29 11:00 AM Recorded Pressure: RV, HR=86, Condition=Condition 1 (Right Ventricle) RV 47 11:01 AM Recorded Pressure: RA, HR=83, Condition=Condition 1 (Right Atrium) RA 11:02 AM Carlos Haider RN Position: Nurse Time in: 11:02 scoates 11:02 AM Right heart hemodynamics, O2 saturations and Cardiac Outputs obtained. scoates 11:02 AM [place] catheter removed with balloon intact scoates 11:03 AM Wire removed scoates 11:03 AM Procedure completed at 11:03 scoates 11:03 AM Sign out completed: Radiation Dose 80 mGy Fluoro Time: 5.0 Isovue 370 - 200ml contrast 59 ml given by Rico Faulkner MD. Complications: NoneCardiac Rehab Consult needed: YesConfirmed administered medications: Yes scoates 11:03 AM Isovue 370 - 200ml,1 Bottle(s) used. scoates 11:04 AM Arterial sheath pulled using manual compression and V+ Pad for 15 minutes by Geetha Arroyo RT scoates 11:04 AM HR=76 bpm, JXSJ=242/88 mmhg, SpO2=99.0 %, Resp=18 B/min, Comment=Sinus Rhythm 11:04 AM Saturation: Site=Ao (Aorta) , O2=99 %, Condition=Condition 1. Used in calculation. 11:05 AM Saturation: Site=MPA (Main Pulmonary Artery) , O2=75.4 %, Condition=Condition 1. Used in calculation. 11:06 AM Time: 10:49LOC: 4 = Oriented but drowsy scoates 11:06 AM Time: 10:49 Patient comfortable and pain free: Yes scoates 11:06 AM Post ECG NSR scoates 11:09 AM HR=84 bpm, YIMY=325/101 mmhg, GiV6=168 %, Resp=23 B/min 11:12 AM NIBP STAT measurement started. 11:13 AM HR=88 bpm, EVPH=680/94 mmhg, JvB0=753 %, Resp=15 B/min 11:17 AM Post Blood Pressure 167/99 scoates 11:18 AM 11:18 Post Pulses Bilateral DP \\T\\ PT 1+ scoates 11:19 AM Information taught Cardiac Cath scoates 11:19 AM Education needs Procedure, Plan of Care, and Responsibilities of Patient in Care scoates 11:19 AM Learning barriers :None scoates 11:19 AM Education Methods Verbal scoates 11:19 AM Education evaluation Able to repeat information scoates 11:19 AM Plavix, Effient or Brilinta given No scoates 11:19 AM Delay to floor No scoates 11:19 AM Family placed in consult room. scoates 11:19 AM Complications: None scoates 11:20 AM Site status No bleeding/hematoma - Lt Groin as reported by Geetha Arroyo RT at 11:20 scoates 11:20 AM Venous sheath pulled using manual compression and V+ Pad for 15 minutes by Geetha Arroyo RT scoates 11:22 AM Time: 11:06 Patient comfortable and pain free: Yes scoates 11:22 AM Time: 11:06LOC: 4 = Oriented but drowsy scoates 11:22 AM Report given to 2NE nurse RN Pt taken to E Room #27. 11:22 scoates 11:22 AM Patient out of room: 11:22 scoates 11:23 AM Isovue 370 - 200ml contrast 59 ml given by Rico Faulkner MD. scoates 11:23 AM Fluoro Time: 5 scoates 11:23 AM Radiation Dose 80 mGy scoates 11:26 AM Left Main Coronary Artery with 70% stenosis scoates 11:26 AM Proximal Left Anterior Descending Coronary Artery with 20% stenosis. If graft is supplying this territory, % stenosis. scoates 11:26 AM Circumflex, Obtuse Marginal, Left Posterior Descending, and Left Posterolateral Coronary Arteries with 50 % stenosis. If graft is supplying this area, % stenosis scoates 11:26 AM Right Coronary, Right Posterior Descending Arteries with Right Posterolateral and Acute Marginal branches with 20 % stenosis. If graft is supplying this area, % stenosis scoates 11:26 AM Ramus with 20% stenosis. If graft is supplying this area, % stenosis scoates Complications Complication None None Hemodynamics Pressures Site Systolic/A Wave Diastolic/V Wave Mean AO 149 94 121 AO 147 85 112 LV 190 -4 18 LV 189 -1 20 AO 174 82 121 AO -7 -7 -7 PCW 25 25 19 MPA 36 18 26 MPA 47 18 29 RV 47 1 8 RA 8 9 7 Oximetry Site Saturation AO 99 AO 99 MPA 75.4 MPA 75.4 Post Procedure Information Blood Pressure: 167/99 mmHg Rhythm: NSR Closure Device Time Device Success/Fail 04/02/2016 11:25:00 AM Manual pressure Successful Site Checks Time Location Status Staff Sheath In? Note 11:20 AM Lt Groin No bleeding/hematoma Geetha Arroyo RT Pulses Time Site Pre-Procedure Post-Procedure Note 04/02/2016 10:30:00 AM Bilateral DP \\T\\ PT 1+ 11:18:00 AM Bilateral DP \\T\\ PT 1+ Updated by Karrie Ortez RN on 04/02/2016 11:28:04 AM electronically signed on 04/02/2016 11:29:31 AM with status of Final
--- NOTE | 2016-04-02 12:27 | Event Note ---
Date of Encounter: 04/02/16 Time of Encounter: 12:20 - Cardiology Event Note Discussed and reviewed with Dr. Jovanni Arce. Dr. Keys from CT surgery consulted. Cath with LM disease.
--- NOTE | 2016-04-02 12:29 | Invasive Diagnostic Lab ---
Name: Raymond Quevedo Date of Study: 04/02/2016 Date: 1930 Ht: 152.4 cm /60.0 in Medical Record#: [id number] Age: 85 Wt: 67.7 kg / 149.25 lb Account/Order#: [id number] Gender: Male BSA: 1.65 Order #: [id number] Fluoro Dose: 80 mGy BMI: 29.15 Procedure Physician: Rico Faulkner MD Referring MD: Referring MD: Procedures Performed: RHC/LHC Indications: Unstable Angina, Aortic stenosis Impressions: There is severe one vessel coronary artery disease. The left ventricle is normal and has normal contractility EF 55% Recommendations: Optimal medical therapy of patient's disease. Aggressive risk factor modification. LMCA stenting recommended in addition to TAVR Patient being referred for cardiac rehab. History/Risk Factors: Acute Kidney Injury Hypertension Dyslipidemia CHF within 2 weeks Procedure Access obtained in the left Femoral artery by percutaneous puncture Access obtained in the left Femoral vein. Complications: None, None Contrast: Isovue 59ml Closure Device: Manual pressure Hemodynamics: Pressures Site Systolic/ A Wave Diastolic/ V Wave End Diastolic/ Mean HR AO 149 94 121 87 AO 147 85 112 69 LV 190 -4 18 88 LV 189 -1 20 92 AO 174 82 121 93 AO -7 -7 -7 160 PCW 25 25 19 86 MPA 36 18 26 86 MPA 47 18 29 83 RV 47 1 8 86 RA 8 9 7 83 Valve Data Aortic Mitral Mean Gradient:(mmHg) 20.61 Peak to Peak Gradient: (mmHg) Valve Area: (cm2) 1.077 Heart Rate: (bpm) Oximetry Site Saturation AO 99 AO 99 MPA 75.4 MPA 75.4 Right Heart Data Jerel Cardiac Output (l/min) 5.2 LV Ventriculography Ejection Method: LV Gram Ejection Fraction: 55% Wall Motion: REILLY Anterobasal Normal Anterolateral Normal Apical: Normal Inferoapical Normal Inferobasal Normal Coronary Dominance: Left Lesion Findings/Interventions * Left Main Coronary Artery There is a 70% stenosis in the LMCA. * Left Anterior Descending There is a 20% stenosis in the Proximal LAD. * Circumflex There is a 50% stenosis in the Proximal Circumflex. * Ramus There is a 20% stenosis in the Ramus. * Right Coronary Artery There is a 20% stenosis in the Mid RCA. Updated by Karrie Ortez RN on 04/02/2016 11:28:33 AM Rico Faulkner MD electronically signed on 04/02/2016 12:25:28 PM with status of Final
--- NOTE | 2016-04-02 12:50 | Invasive Diagnostic Lab Proc ---
Name: Raymond Quevedo Date of Study: 04/02/2016 Date: 1930 Ht: 60.0in Medical Record#: [id number] Age: 85 Wt: 149.25lb Gender: Male BSA: 1.65 Order #: [id number] BMI: 29.15 Physicians Procedure Physician: Rico Faulkner MD Referring MD: Referring MD: Staff Name Position Time In Carlos Haider RN Aerospace Medicine Physician 10:32 AM Sintia Hsieh RN Aerospace Medicine Physician 10:32 AM Karrie Parrish RN Monitor 10:32 AM Tammi Peterson RT (R) 10:32 AM Carlos Haider RN Nurse 11:02 AM Indications Indication Unstable Angina Aortic stenosis Procedures Performed Procedure R\\T\\L HRT ART/VENTRICLE ANGIO Pre-Procedure Checklist Informed consent is complete signed and on chart. H\\T\\P is on chart. ID band is on and ID verified with patient. Patient NPO for procedure The procedure was described for the patient and questions were answered. Blood Pressure: 166/88 ECG is on chart. Rhythm: NSR Plan of Care Patient will tolerate the procedure without complications. Adequate level of comfort will be maintained. Hemodynamics will remain stable Patient will recover from procedure without complications. Respiratory function will be maintained. Cardiac rhythm will remain stable. Patient temperature will be maintained. Patient and/or family have verbalized understanding of the procedure. Patient Education Chief Complaint/Reason for Test: Cardiac Cath Developmental Category: Geriatric (65+ years) Developmentally Appropriate for Age: Yes Learning Barriers: None Education Needs: Procedure Education Method: Verbal Information Taught: Cardiac Cath Educational Evaluation: Able to repeat information Intravenous Access Time IV Size Location DC'd Fluid/Drip Rate Units RN 10:30 AM 20g 1 1/" Patent On Arrival Rt Arm 0.9NaCl 25 ml/hr Allergies NKA Vital Signs Time BP (mmHg) HR (bpm) O2 Sat. RR (bpm) LOC / % 5 = Fully awake and oriented or at pre-proc level 10:34 AM / % 5 = Fully awake and oriented or at pre-proc level 10:34 AM / % 4 = Oriented but drowsy 10:49 AM / % 4 = Oriented but drowsy 10:34 AM 166 / 88 87 100 % 16 10:39 AM 161 / 72 79 98 % 16 10:44 AM 142 / 79 88 100 % 17 10:49 AM 158 / 91 94 100 % 20 10:54 AM 169 / 94 87 100 % 18 10:56 AM 134 / 95 164 100 % 15 10:59 AM 162 / 81 84 98 % 17 11:04 AM 170 / 88 76 99 % 18 11:09 AM 177 / 101 84 100 % 23 11:13 AM 168 / 94 88 100 % 15 11:06 AM / % 4 = Oriented but drowsy Procedural Medications Time Medication Dose Units Method Given By 10:33 AM Oxygen 2 L/min nasal cannula Karrie Parrish RN 10:34 AM Versed 0.5 mg Intravenous Karrie Parrish RN 10:39 AM Lidocaine 2% 15 ml Subcutaneous Rico Faulkner MD 10:56 AM Lopressor 2.5 mg Intravenous Carlos Haider RN ASA Classification: CLASS III- Severe systemic disease (i.e. prior AMI, diabetes with vascular complications, morbid obesity) Imani Score Preprocedure Postprocedure Activity 2- Moves 4 extremities sustained head lift Activity 2- Moves 4 extremities sustained head lift Circulation 2- SBP +/= 20 points of pre-anesthetic level Circulation 2- SBP +/= 20 points of pre-anesthetic level Consciousness 2- Awake and alert oriented x 3 Consciousness 2- Awake and alert oriented x 3 O2 Saturation 2- Able to maintain O2 satruation of 92% on room air O2 Saturation 2- Able to maintain O2 satruation of 92% on room air Respiratory 2- Able to deep breathe and cough well Respiratory 2- Able to deep breathe and cough well Total Score 10 Total Score 10 Contrast Agent: Isovue Diagnostic Contrast: 59 ml Total Contrast: 59 ml Fluoro Dose: 80 mGy Procedure Log Time Note Enter By 10:32 AM Pt arrived to medical laboratory technical officer 2 at 10:32 scoates 10:32 AM Physician arrived 10:32 scoates 10:32 AM Meet and greannemarie completed scoates 10:32 AM Sign in performed according to hospital policy. scoates 10:32 AM Procedure start 10:32 scoates 10:32 AM ASA Class CLASS III- Severe systemic disease (i.e. prior AMI, diabetes with vascular complications, morbid obesity) scoates 10:32 AM Carlos Haider RN Position: Aerospace Medicine Physician Time in: 10:32 scoates 10:32 AM Sintia Hsieh RN Position: Aerospace Medicine Physician Time in: 10:32 scoates 10:32 AM Karrie Parrish RN Position: Monitor Time in: 10:32 scoates 10:33 AM Tammi Peterson (R) Position: Time in: 10:32 scoates 10:33 AM Patient charges- Angio tray pack, Navilyst 3mm J, Pulse Oximetry and ACIST tubing and transducer scoates 10:33 AM Case Delayed No scoates 10:33 AM CathStat 10:33 AM Vitals capture started with the following parameters, Patient=Adult, Interval=5 min, Initial Wlyjllcf=364 mmHg, Deflation Rate=5 mmHg, Cuff placed on Left Leg 10:33 AM Recorded ECG: HR=85 Condition=Condition 1 10:34 AM Time: 10:33 Oxygen on at 2 L/min per nasal cannula by Karrie Parrish RN scoates :34 AM Time: :34 Versed 0.5 mg Intravenous Given by Karrie Parrish RN scoates :34 AM Time: 10:34 Patient comfortable and pain free: Yes scoates 10:34 AM Time: 10:34LOC: 5 = Fully awake and oriented or at pre-proc level scoates 10:34 AM HR=87 bpm, OXDZ=336/88 mmhg, ZqG5=059.0 %, Resp=16 B/min, Comment=Sinus Rhythm 10:35 AM Clinical Presentation: Unstable angina scoates 10:36 AM Hair removed from procedure site in procedure lab using clippers. Bilateral groin prepped with Chloraprep by Tammi Peterson (R) then patient draped. Skin intact. scoates 10:39 AM Time out performed according to hospital policy scoates 10:39 AM HR=79 bpm, WVDH=362/72 mmhg, SpO2=98.0 %, Resp=16 B/min, Comment=Sinus Rhythm 10:39 AM Time: :39 15 ml Lidocaine 2% to left groin Subcutaneous Given by Rico Faulkner MD scoates 10:39 AM Access obtained by percutaneous puncture. 5Fr 10cm Terumo [place] sheath placed in left Femoral artery. [id number] scoates 10:40 AM 5Fr FR 4 catheter inserted over the wire [facility] scoates 10:41 AM Pressure channel 1 zeroed. 10:41 AM Recorded Pressure: Ao, HR=87, Condition=Condition 1 (Aorta) Ao 149/94/121 10:42 AM RCA angiography performed in multiple views. scoates 10:42 AM Catheter removed scoates 10:42 AM 5Fr FL 4 catheter inserted over the wire [facility] scoates 10:43 AM LCA angiography performed in multiple views. scoates 10:43 AM Recorded Pressure: Ao, HR=69, Condition=Condition 1 (Aorta) Ao 147/85/112 10:44 AM HR=88 bpm, YISL=328/79 mmhg, QmL6=918.0 %, Resp=17 B/min, Comment=Sinus Rhythm 10:46 AM Catheter removed scoates 10:47 AM Pressure channel 1 zeroed. 10:47 AM Recorded Pressure: LV, HR=88, Condition=Condition 1 (Left Ventricle) LV 190/-4/18 10:47 AM 5Fr Pigtail catheter inserted over the wire [facility] scoates 10:47 AM Catheter selectively placed in left ventricle scoates 10:47 AM Bolus angiogram of left Ventricle complete: 7 ml/sec for a total of 21 mls scoates 10:48 AM Recorded Pressure: LV, Ao, HR=92, Condition=Condition 1 (Left Ventricle) LV 189/-1/20, (Aorta) Ao 174/82/121 10:49 AM Coronary Dominance: Left scoates 10:49 AM Catheter removed scoates 10:49 AM HR=94 bpm, OSDI=282/91 mmhg, WnV8=354.0 %, Resp=20 B/min, Comment=Sinus Rhythm 10:49 AM Lesion found in LMCA. Pre Stenosis: 70 Pre DEVORA Flow: scoates 10:49 AM Lesion found in Mid RCA. Pre Stenosis: 20 Pre DEVORA Flow: scoates 10:49 AM Time: 10:34 Patient comfortable and pain free: Yes scoates 10:49 AM Time: 10:34LOC: 4 = Oriented but drowsy scoates 10:50 AM Lesion found in Proximal LAD. Pre Stenosis: 20 Pre DEVORA Flow: scoates 10:50 AM Lesion found in Proximal Circumflex. Pre Stenosis: 50 Pre DEVORA Flow: scoates 10:50 AM Lesion found in Ramus. Pre Stenosis: 20 Pre DEVORA Flow: scoates 10:51 AM left heart cath complete, now moving to right heart cath scoates 10:54 AM HR=87 bpm, IXYE=147/94 mmhg, EdS9=805.0 %, Resp=18 B/min, Comment=Sinus Rhythm 10:55 AM Access obtained by percutaneous puncture. 7Fr 11cm Cordis Adwoa sheath placed in left Femoral vein. [id number] scoates 10:55 AM 7 F [employer] Lapel-Librado 'S' tip inserted through venous sheath scoates 10:55 AM patients rhythm has changed to SVT scoates 10:56 AM Recorded Pressure: Ao, BR=503, Condition=Condition 1 (Aorta) Ao -7/-7/-7 10:56 AM NIBP STAT measurement started. 10:56 AM ZS=178 bpm, HPRQ=227/95 mmhg, WuO3=175.0 %, Resp=15 B/min, Comment=svt 10:56 AM Time: 10:56 Lopressor 2.5 mg Intravenous Given by Carlos Haider RN scoates 10:58 AM Recorded Pressure: PCW, HR=86, Condition=Condition 1 (Pulmonary Capillary Wedge) PCW 25/25/19 10:59 AM Recorded Pressure: MPA, HR=86, Condition=Condition 1 (Main Pulmonary Artery) MPA 36/18/26 10:59 AM HR=84 bpm, FWHH=239/81 mmhg, SpO2=98.0 %, Resp=17 B/min, Comment=Sinus Rhythm 11:00 AM Recorded Pressure: MPA, HR=83, Condition=Condition 1 (Main Pulmonary Artery) MPA 47/18/29 11:00 AM Recorded Pressure: RV, HR=86, Condition=Condition 1 (Right Ventricle) RV 47 11:01 AM Recorded Pressure: RA, HR=83, Condition=Condition 1 (Right Atrium) RA 11:02 AM Carlos Haider RN Position: Nurse Time in: 11:02 scoates 11:02 AM Right heart hemodynamics, O2 saturations and Cardiac Outputs obtained. scoates 11:02 AM Lapel-Librado catheter removed with balloon intact scoates 11:03 AM Wire removed scoates 11:03 AM Procedure completed at 11:03 scoates 11:03 AM Sign out completed: Radiation Dose 80 mGy Fluoro Time: 5.0 Isovue 370 - 200ml contrast 59 ml given by Rico Faulkner MD. Complications: NoneCardiac Rehab Consult needed: YesConfirmed administered medications: Yes scoates 11:03 AM Isovue 370 - 200ml,1 Bottle(s) used. scoates 11:04 AM Arterial sheath pulled using manual compression and V+ Pad for 15 minutes by Geetha Arroyo RT scoates 11:04 AM HR=76 bpm, ROKV=336/88 mmhg, SpO2=99.0 %, Resp=18 B/min, Comment=Sinus Rhythm 11:04 AM Saturation: Site=Ao (Aorta) , O2=99 %, Condition=Condition 1. Used in calculation. 11:05 AM Saturation: Site=MPA (Main Pulmonary Artery) , O2=75.4 %, Condition=Condition 1. Used in calculation. 11:06 AM Time: 10:49LOC: 4 = Oriented but drowsy scoates 11:06 AM Time: 10:49 Patient comfortable and pain free: Yes scoates 11:06 AM Post ECG NSR scoates 11:09 AM HR=84 bpm, OACA=445/101 mmhg, MuJ0=426 %, Resp=23 B/min 11:12 AM NIBP STAT measurement started. 11:13 AM HR=88 bpm, QWHI=033/94 mmhg, KzV5=037 %, Resp=15 B/min 11:17 AM Post Blood Pressure 167/99 scoates 11:18 AM 11:18 Post Pulses Bilateral DP \\T\\ PT 1+ scoates 11:19 AM Information taught Cardiac Cath scoates 11:19 AM Education needs Procedure, Plan of Care, and Responsibilities of Patient in Care scoates 11:19 AM Learning barriers :None scoates 11:19 AM Education Methods Verbal scoates 11:19 AM Education evaluation Able to repeat information scoates 11:19 AM Plavix, Effient or Brilinta given No scoates 11:19 AM Delay to floor No scoates 11:19 AM Family placed in consult room. scoates 11:19 AM Complications: None scoates 11:20 AM Site status No bleeding/hematoma - Lt Groin as reported by Geetha Arroyo RT at 11:20 scoates 11:20 AM Venous sheath pulled using manual compression and V+ Pad for 15 minutes by Geetha Arroyo RT scoates 11:22 AM Time: 11:06 Patient comfortable and pain free: Yes scoates 11:22 AM Time: 11:06LOC: 4 = Oriented but drowsy scoates 11:22 AM Report given to 2NE nurse RN Pt taken to E Room #27. 11:22 scoates 11:22 AM Patient out of room: 11:22 scoates 11:23 AM Isovue 370 - 200ml contrast 59 ml given by Rico Faulkner MD. scoates 11:23 AM Fluoro Time: 5 scoates 11:23 AM Radiation Dose 80 mGy scoates 11:26 AM Left Main Coronary Artery with 70% stenosis scoates 11:26 AM Proximal Left Anterior Descending Coronary Artery with 20% stenosis. If graft is supplying this territory, % stenosis. scoates 11:26 AM Circumflex, Obtuse Marginal, Left Posterior Descending, and Left Posterolateral Coronary Arteries with 50 % stenosis. If graft is supplying this area, % stenosis scoates 11:26 AM Right Coronary, Right Posterior Descending Arteries with Right Posterolateral and Acute Marginal branches with 20 % stenosis. If graft is supplying this area, % stenosis scoates 11:26 AM Ramus with 20% stenosis. If graft is supplying this area, % stenosis scoates Complications Complication None None Hemodynamics Pressures Site Systolic/A Wave Diastolic/V Wave Mean AO 149 94 121 AO 147 85 112 LV 190 -4 18 LV 189 -1 20 AO 174 82 121 AO -7 -7 -7 PCW 25 25 19 MPA 36 18 26 MPA 47 18 29 RV 47 1 8 RA 8 9 7 Oximetry Site Saturation AO 99 AO 99 MPA 75.4 MPA 75.4 Post Procedure Information Blood Pressure: 167/99 mmHg Rhythm: NSR Post procedural instructions were given Closure Device Time Device Success/Fail 04/02/2016 11:25:00 AM Manual pressure Successful Site Checks Time Location Status Staff Sheath In? Note 11:20 AM Lt Groin No bleeding/hematoma Geetha Arroyo RT Pulses Time Site Pre-Procedure Post-Procedure Note 04/02/2016 10:30:00 AM Bilateral DP \\T\\ PT 1+ 11:18:00 AM Bilateral DP \\T\\ PT 1+ Updated by Karrie Ortez RN on 04/02/2016 12:42:59 PM electronically signed on 04/02/2016 12:43:25 PM with status of Final
--- NOTE | 2016-04-02 13:35 | Cardiothoracic Consult Note ---
Date of Encounter: 04/02/16 Time of Encounter: 13:31 Assessment and Plan (1) Aortic stenosis Current Visit: Yes Status: Acute The assessment and plan as outlined above was discussed with the patient and/or family members who expressed understanding and agreement. All questions were answered. I discussed the situation with the patient and his family. I discussed possible open heart surgery with coronary artery bypass grafting and aortic valve replacement. This would be at increased risk because of his age of 85. They wish to pursue percutaneous aortic valve replacement and possible PTCA of his left main lesion. This would need to be done [place] [facility]. At this point, they have no questions. Qualifiers: Cardiac valve disease etiology: etiology unspecified Qualified Code(s): I35.0 - Nonrheumatic aortic (valve) stenosis - History of Present Illness History of present illness: Mr. Quevedo is a 85 year old male History of present illness. Patient is an 85-year-old gentleman who presented with chest pain, shortness of breath and congestive heart failure. Echocardiogram revealed severe aortic valve stenosis with mild pulmonary hypertension. He had well-preserved left ventricular function. Cardiac catheterization was done today and revealed a small right coronary artery. He had a 70% left main lesion involving the LAD, intermediate branch and circumflex. Past medical history is notable for lymphoma. He is also had prostate cancer. He has hypertension. He has had retinal hemorrhages. He has mild chronic renal failure with a creatinine of 1.3-1.4. He has no known allergies. Social history. He lives outside of [place]. He is a retired tool mechanic. He does not smoke and does not drink. Family history is positive for coronary artery disease and valvular disease. Review of systems is otherwise negative. Past Med Surg Social Fam HX - Past Medical History Medical history: hyperlipidemia, hypertension Psychiatric history: no psych history - Past Surgical History Surgical History: herniorrhaphy - Social History Smoking Status: Never smoker Smokeless Tobacco Status: No Alcohol use: none Drug use: none Medications and Allergies Amlodipine Besylate 5 mg PO DAILY 03/29/16 [History] Lovastatin 10 mg PO DAILY 03/29/16 [History] Metoprolol Tartrate 50 mg PO BID 03/29/16 [History] Allergies No Known Allergies Allergy (Verified 03/29/16 08:19) All Systems Review: A 10-system review of systems was performed and is negative for pertinent findings except as documented above in the HPI. Physical Examination Vital Signs, Last 4 Hours Temp Pulse Resp BP Pulse Ox 04/02/16 11:38 97.5 F L 89 18 158/79 97 He has bilateral, small cataracts. He is missing his upper teeth. Neck is supple. Trachea in the midline. No thyromegaly or carotid bruits. Lungs are clear to percussion and auscultation. Heart is in a regular rate and rhythm. There is a 3/6 systolic murmur, heard best in the aortic area. Abdomen is benign. No tenderness, rebound or guarding. No hepatosplenomegaly or masses. Extremities without edema. 1+ pulses. Cranial nerves, motor and sensory intact. He is awake, alert and oriented 3. Results 04/02/16 04:16 04/02/16 04:16 Lab Results, Last 24 hours 04/02/16 04/02/16 04/02/16 04:16 04:16 08:30 WBC 12.2 H Hgb 10.3 L Hct 31.3 L Plt Count 345 INR 1.2 Sodium 140 Potassium 4.3 Chloride 110 H Carbon Dioxide 22 BUN 13 Creatinine 1.33 H Glucose 99 Calcium 9.9 Total Bilirubin 0.4 AST 21 ALT 17 Alkaline Phosphatase 96 Consult Discharge Plan - Plan [facility]errals: [facility] [Primary Care Provider] -
[2016-04-02] MEDS: Levofloxacin 750 MG/150 ML 750 MG/150 ML BAG IVPB SCH (13:49)
[2016-04-02] MEDS: 0.9 % Sodium Chloride 1,000 ML IVC SCH ×2 (14:02→21:39)
--- NOTE | 2016-04-02 17:25 | Electrocardiograph Report ---
[address] [place] [address] Test Date: 2016-03-31 Pat Name: Raymond Quevedo Department: 111 Room: 2NE27 Gender: M Marketing Research Coordinator: : 1930 Requested By: Ronen Flores Order Number: [id number] Reading MD: Ro Vega Measurements Intervals [place] Rate: 72 P: -6 NE: 136 QRS: 17 QRSD: 142 T: -14 QT: 401 QTc: 425 Interpretive Statements SINUS RHYTHM WITH OCCASIONAL SUPRAVENTRICULAR PREMATURE COMPLEXES INTRAVENTRICULAR CONDUCTION DELAY POSSIBLE INFERIOR MYOCARDIAL INFARCTION, OF INDETERMINATE AGE Electronically Signed On 04-02-2016 17:23:50 EST by Ro Vega
--- NOTE | 2016-04-02 17:42 | Internal Med Progress Note ---
<Ras Kee - Last Filed: 04/02/16 17:40> Date of Encounter: 04/02/16 Time of Encounter: 15:00 - Assessment and plan (1) SIRS (systemic inflammatory response syndrome) Current Visit: Yes Status: Acute Assessment and plan: Patient met SIRS criteria, likely source of dental abscess. Tolerating antibiotic coverage including Levaquin and Zosyn (day 4). Denies oral pain, tolerating oral intake. Plan: - Continue antibiotic coverage. (2) HTN (hypertension) Current Visit: Yes Status: Acute Assessment and plan: Blood pressure has been stable. Plan: - Continue Lopressor 25mg PO BID Qualifiers: Hypertension type: essential hypertension Qualified Code(s): I10 - Essential (primary) hypertension (3) Severe aortic stenosis Current Visit: Yes Status: Acute Assessment and plan: Patient has severe aortic stenosis, symptomatic. He has been evaluated by cardiothoracic's and cardiology recommended intervention. Patient does not want open-heart surgery, cardiothoracic note has been reviewed. I have discussed transfer to [facility] tomorrow for potential intervention. Mr. Quevedo would like to discuss this over with his son this evening. Plan: - Plan for transfer to [facility] for TAVR and LAD stent placement (4) DINA (acute kidney injury) Current Visit: Yes Status: Acute Assessment and plan: Creatinine improved today but just underwent left heart catheterization. Patient is currently on normal saline at 100 mL's per hour. Plan: - Continue monitoring renal function with a.m. labs. - Continue normal saline at 100 mL's per hour. - Monitor fluid status. -Avoid nephrotoxic medications (5) CAD (coronary artery disease) Current Visit: Yes Status: Acute Assessment and plan: Mr. Quevedo has 70 stenosis of LAD, recommended intervention at the same time he has intervention for his severe aortic stenosis. Plan is for transfer to [facility] tomorrow. Qualifiers: Qualified Code(s): I25.10 - Atherosclerotic heart disease of crow coronary artery without angina pectoris - Subjective Interval history: Mr. Quevedo has been seen and evaluated patient bedside this afternoon. He is status post left heart catheter and is doing well. He denies any chest pain, chest pressure, palpitations, lightheadedness, shortness of breath or abdominal pains. He feels slightly confused regarding the plan for intervention on his aortic valve and LAD. After further discussion regarding the procedure he wishes to discuss it further with his son. He feels he may be to old to undergo any intervention on his aortic valve. - Constitutional Vitals: Temp Pulse Resp BP Pulse Ox 97.4 F L 81 18 153/72 97 04/02/16 15:52 04/02/16 15:52 04/02/16 15:52 04/02/16 15:52 04/02/16 15:52 General appearance: Present: A&O X 3, pleasant, no acute distress, answers questions appropriately - Head Head exam: Present: atraumatic, normocephalic - Eye Eye exam: Present: PERRL, conjuntiva pink, sclera anicteric Pupils: Present: PERRL - ENT ENT exam: Present: mucous membranes moist Additional comments: erythema of the left upper gum line. no sign of drainage, puss or bleeding. - Neck Neck exam general surgery: Present: supple, trachea midline. Absent: lymphadenopathy - Respiratory Respiratory exam: Present: CTAB. Absent: accessory muscle use, rales, rhonchi, wheezes - Cardiovascular Additional comments: Regular rate and rhythm, holosystolic ejection murmur appreciated upon auscultation, with radiation to the bilateral carotids. - GI/Abdominal GI/Abdominal exam: Present: normal bowel sounds, soft, no peritoneal signs. Absent: distended, tenderness - Extremities Exam Extremities exam: Present: warm, radial pulses palpable and symetrical. Absent : calf tenderness, cyanotic, pedal edema - Neurological Exam Neurological exam: Present: alert, oriented X3, no focal deficits. Absent: pronater drift, facial droop, speech deficit Additional comments: Hearing difficult. - Psychiatric Psychiatric exam: Present: normal affect, normal mood Internal Medicine: Result - Labs CBC & Chem 7: 04/02/16 04:16 04/02/16 04:16 Labs: Short CBC 04/02/16 Range/Units 04:16 WBC 12.2 H (4.3-11.1) K/mcL Hgb 10.3 L (12.9-16.9) g/dL Hct 31.3 L (37.5-50.1) % Plt Count 345 (140-400) K/mcL Neutrophils # 7.6 (1.6-8.9) K/mcL BMP 04/02/16 04:16 Sodium 140 Potassium 4.3 Chloride 110 H Carbon Dioxide 22 BUN 13 Creatinine 1.33 H Glucose 99 Calcium 9.9 Liver Function 04/02/16 Range/Units 04:16 Total Bilirubin 0.4 (0.2-1.2) mg/dL AST 21 (5-34) Units/L ALT 17 (0-55) Units/L Alkaline Phosphatase 96 (38-126) Units/L Albumin 2.9 L (3.5-5.0) g/dL - ABG Interpretation ABG results: PT/INR, D-dimer PT 13.1 Seconds (9.4-12.1) H 04/02/16 08:30 D-Dimer 395 ng/mLFEU (0-500) 03/29/16 09:04 Consult Discharge Plan - Plan [facility]errals: [facility] [Primary Care Provider] - <Ronen Flores P - Last Filed: 04/02/16 18:30> - Assessment and plan (1) SIRS (systemic inflammatory response syndrome) Current Visit: Yes Status: Acute (2) DINA (acute kidney injury) Current Visit: Yes Status: Acute (3) Aortic stenosis Current Visit: Yes Status: Acute Qualifiers: Cardiac valve disease etiology: etiology unspecified Qualified Code(s): I35.0 - Nonrheumatic aortic (valve) stenosis (4) HTN (hypertension) Current Visit: Yes Status: Acute Qualifiers: Hypertension type: essential hypertension Qualified Code(s): I10 - Essential (primary) hypertension - Constitutional Vitals: Temp Pulse Resp BP Pulse Ox 97.4 F L 81 18 153/72 97 04/02/16 15:52 04/02/16 15:52 04/02/16 15:52 04/02/16 15:52 04/02/16 15:52 Internal Medicine: Result - Labs CBC & Chem 7: 04/02/16 04:16 04/02/16 04:16 Labs: Short CBC 04/02/16 Range/Units 04:16 WBC 12.2 H (4.3-11.1) K/mcL Hgb 10.3 L (12.9-16.9) g/dL Hct 31.3 L (37.5-50.1) % Plt Count 345 (140-400) K/mcL Neutrophils # 7.6 (1.6-8.9) K/mcL BMP 04/02/16 04:16 Sodium 140 Potassium 4.3 Chloride 110 H Carbon Dioxide 22 BUN 13 Creatinine 1.33 H Glucose 99 Calcium 9.9 Liver Function 04/02/16 Range/Units 04:16 Total Bilirubin 0.4 (0.2-1.2) mg/dL AST 21 (5-34) Units/L ALT 17 (0-55) Units/L Alkaline Phosphatase 96 (38-126) Units/L Albumin 2.9 L (3.5-5.0) g/dL - ABG Interpretation ABG results: PT/INR, D-dimer PT 13.1 Seconds (9.4-12.1) H 04/02/16 08:30 D-Dimer 395 ng/mLFEU (0-500) 03/29/16 09:04 - Attending Attestation I examined this patient and my medical decision-making was reviewed with the SLASHER MACHINE OPERATOR/PA/Advanced Practice Nurse/Resident Physician. I agree with the documented findings, disposition and treatment plan as described except to the extent set forth below. transfer to [facility] tomorrow
[2016-04-03] MEDS: *HR* Heparin 5,000 UNIT/ML VIAL SQ SCH ×2 (06:34→15:49)
[2016-04-03 06:49] LABS: Basophils # 0.1 K/mcL (0.0-0.2); Basophils % 0.8 %; Eosinophils # 0.5 K/mcL (0.0-0.6); Eosinophils % 5.6 %; Hematocrit 30.2 % (37.5-50.1); Hemoglobin 9.9 g/dL (12.9-16.9); Immature Granulocytes % 1.1 % (0-4); Lymphocytes # 1.9 K/mcL (0.6-4.6); Lymphocytes % 20.3 %; Mean Corpuscular HGB Conc 32.8 g/dL (31.6-35.5); Mean Corpuscular Hemoglobin 29.2 pg (28.0-33.3); Mean Corpuscular Volume 89.1 fL (83.0-100.0); Mean Platelet Volume 10.1 fL (9.4-12.4); Monocytes # 1.3 K/mcL (0.0-1.3); Monocytes % 13.6 %; Neutrophils # 5.6 K/mcL (1.6-8.9); Platelet Count 342 K/mcL (140-400); Red Blood Count 3.39 M/mcL (4.19-5.50); Red Cell Distribution Width 14.2 % (11.5-14.5); Segmented Neutrophils % 58.6 %
[2016-04-03 07:11] LABS: Albumin 2.7 g/dL (3.5-5.0); Albumin/Globulin Ratio 0.8 (1.1-2.2); Bilirubin,Total 0.4 mg/dL (0.2-1.2); Calcium 9.5 mg/dL (8.6-10.8); Globulin 3.2 g/dL (2.4-3.5); Potassium 4.3 mEq/L (3.5-4.5); Total Protein 5.9 g/dL (6.0-8.3)
--- NOTE | 2016-04-03 08:16 | Cardiology Progress Note ---
Date of Encounter: 04/03/16 Time of Encounter: 08:30 Assessment and Plan (1) Severe aortic stenosis Current Visit: Yes Status: Acute Per Cardiology: Echo shows EF 65-70%. Mild LVH, mild diastolic dysfunction, severely calcified probable trileaflet aortic valve with reduced excursion. Severe aortic stenosis , MG 41mmHg, PV 4.02. Mild pulmonary hypertension. Discussed and reviewed with Dr. Jovanni Arce and Dr. Keys, recs for transfer to [facility] for eval. for TAVR. Pending discharge to [facility]. Cardiology signoff, will follow-up in outpatient setting-- appointment scheduled, reconsult as needed. All questions answered. (2) CAD (coronary artery disease) Current Visit: Yes Status: Acute Per Cardiology: Status post left heart catheterization which showed left main 70% stenosis, proximal LAD 20%, proximal circumflex 50%, ramus 20%, mid RCA 20% stenosis. Seen by CT surgery with recommendations for transfer to [facility] for evaluation of possible stenting and TAVR. On aspirin, statin, beta pippa. Patient is DNR/DNI Comfort Care arrest. Qualifiers: Coronary Disease-Associated Artery/Lesion type: [place] artery [place] vs. transplanted heart: [place] heart Associated angina: angina presence unspecified Qualified Code(s): I25.10 - Atherosclerotic heart disease of [place] coronary artery without angina pectoris (3) CKD (chronic kidney disease) stage 3, GFR 30-59 ml/min Current Visit: Yes Status: Acute Per Cardiology: Remains stable status post [facility], continue to monitor. Discussion w patient/family: The assessment and plan as outlined above was discussed with the patient and/or family members who expressed understanding and agreement. All questions were answered. Thank you for involving us in the care of your patient. Please call with any questions. Subjective Principal diagnosis: Severe , CAD Interval history: Patient denies any concerns or complaints. He denies any chest pain, shortness of breath, palpitations. Denies any competitions from his left groin site. Objective Vital Signs, Last 4 Hours Temp Pulse Resp BP Pulse Ox 04/03/16 07:12 98 F 70 16 143/73 93 L 04/03/16 04:48 98.1 F 64 17 133/67 97 General: Conversant, No Apparent Distress HEENT: Atraumatic, Normocephaly Cardiac: Reg Rate and Rhythm, Other (Grade IV/ murmur noted) Lungs: Normal Breath Sounds, No Wheeze, Rales, Rhonchi Neuro: Alert and responsive, No focal deficits noted Skin: No rashes noted on visualized skin, Other (Left groin site dry and intact , no hematoma, no ecchymosis, no bleeding, left dorsalis pedis and posterior tibial pulses 1+ palpable, warm to touch) Extremities: No Edema Results 04/03/16 05:57 04/03/16 05:57 Lab Results Active Medications Acetaminophen (Tylenol) 650 mg PO Q6HR PRN PRN Reason: Mild Pain (1-3) Stop: 09/28/16 05:56 Aspirin (Aspirin) 81 mg PO DAILY [facility] Stop: 09/28/16 09:01 Last Admin: 04/02/16 08:28 Dose: 81 mg Bisacodyl (Dulcolax) 10 mg RC DAILY PRN PRN Reason: Constipation Stop: 09/29/16 10:53 Heparin Sodium (Porcine) (Heparin) 5,000 unit SQ Q8HCO [facility] Stop: 09/28/16 06:25 Last Admin: 04/03/16 06:34 Dose: 5,000 unit Piperacillin Sod/Tazobactam (Sod 3.375 gm/ Dextrose) 100 mls @ 25 mls/hr IVPB Q8HR [facility] PRN Reason: Protocol Stop: 09/28/16 16:01 Last Admin: 04/02/16 23:52 Dose: 25 mls/hr Levofloxacin/Dextrose (Levaquin 750mg/150 Ml) 750 mg in 150 mls @ 100 mls/hr IVPB Q48H [facility] Stop: 09/30/16 13:01 Last Admin: 04/02/16 13:49 Dose: 100 mls/hr Sodium Chloride (0.9 % Sodium Chloride) 1,000 mls @ 100 mls/hr IVC .Q10H [facility] Stop: 10/02/16 11:16 Last Admin: 04/02/16 21:39 Dose: 100 mls/hr Magnesium Hydroxide (Milk Of Magnesia Conc) 10 ml PO DAILY PRN PRN Reason: Constipation Stop: 09/29/16 12:09 Metoprolol Tartrate (Lopressor) 25 mg PO BID [facility] Stop: 10/02/16 21:01 Last Admin: 04/02/16 21:38 Dose: 25 mg Morphine Sulfate (Morphine Sulfate) 2 mg IVP Q2H PRN PRN Reason: moderate to severe chest pain Stop: 09/28/16 06:19 Naloxone HCl (Narcan) 0.4 mg IVP Q2MIN PRN PRN Reason: Opioid Reversal Stop: 09/28/16 05:56 Nitroglycerin (Nitroglycerin) 0.4 mg SL Q5MIN PRN PRN Reason: Chest Pain Stop: 09/28/16 05:54 Last Admin: 03/29/16 07:19 Dose: 0.4 mg Ondansetron HCl (Zofran) 4 mg IVP Q8HR PRN PRN Reason: Nausea And Vomiting Stop: 09/28/16 05:56 Last Admin: 03/29/16 21:49 Dose: 4 mg Pantoprazole Sodium (Protonix) 40 mg IVP DAILY [facility] Stop: 09/28/16 09:01 Last Admin: 04/02/16 08:28 Dose: 40 mg Simvastatin (Zocor) 10 mg PO DAILY [facility] Stop: 09/28/16 09:01 Last Admin: 04/02/16 08:28 Dose: 10 mg - Imaging and Cardiology Cardiac cath: report reviewed - EKG Interpretation EKG results cardiology: other (24 hour telemetry reviewed with average heart rate 69, sinus rhythm, occasional PACs, brief atrial tach) Consult Discharge Plan - Plan Instructions: Aspirin (By mouth), Piperacillin/Tazobactam (Injection), Levofloxacin (Injection), Chest Pain (DC), Aortic Stenosis (DC), Aortic Stenosis (GEN), Acute Respiratory Distress Syndrome (DC), Chronic Hypertension ( DC) Additional Instructions: Patient to be transferred to [facility] for Cardiac intervention. Discussed with Dr. Mauricio at [facility] and accepted transfer. [facility]errals: [facility] [Primary Care Provider[facility] - Prescriptions: Piperacillin/Tazobactam [Zosyn] 3.375 gm IVPB Q8HR #1 vial Aspirin 81 mg PO DAILY #30 tab.chew Levofloxacin 750 MG/150 ML [Levaquin 750mg/150 mL] 750 mg IVPB Q48H #1 bag
[2016-04-03] MEDS: Piperacillin/Tazobactam 3.375 GM in D5% in Water (Mini-Bag+) 100 ML IVPB SCH ×2 (08:25→15:48)
[2016-04-03] MEDS: Aspirin 81 MG TAB.CHEW PO SCH (08:26)
[2016-04-03] MEDS: Pantoprazole 40 MG VIAL IVP SCH (08:26)
[2016-04-03] MEDS: 0.9 % Sodium Chloride 1,000 ML IVC SCH ×2 (08:31→15:52)
--- NOTE | 2016-04-03 09:18 | Discharge Summary ---
<Ras Kee Camilo - Last Filed: 04/03/16 09:14> Date of Encounter: 04/03/16 Time of Encounter: 09:15 - Discharge Diagnosis (1) SIRS (systemic inflammatory response syndrome) Priority: Primary Status: Acute (2) HTN (hypertension) Priority: Secondary Status: Acute Qualifiers: Hypertension type: essential hypertension Qualified Code(s): I10 - Essential (primary) hypertension (3) Severe aortic stenosis Priority: Primary Status: Acute (4) DINA (acute kidney injury) Priority: Secondary Status: Acute (5) CAD (coronary artery disease) Priority: Primary Status: Acute Qualifiers: Coronary Disease-Associated Artery/Lesion type: [place] artery [place] vs. transplanted heart: [place] heart Associated angina: angina presence unspecified Qualified Code(s): I25.10 - Atherosclerotic heart disease of [place] coronary artery without angina pectoris - Discharge Medications Prescriptions: Piperacillin/Tazobactam [Zosyn] 3.375 gm IVPB Q8HR #1 vial Aspirin 81 mg PO DAILY #30 tab.chew Levofloxacin 750 MG/150 ML [Levaquin 750mg/150 mL] 750 mg IVPB Q48H #1 bag Home Medications: Amlodipine Besylate 5 mg PO DAILY 03/29/16 [History] Acetaminophen [Tylenol] 650 mg PO Q6HR PRN #0 tablet 04/03/16 [Rx] Aspirin 81 mg PO DAILY #30 tab.chew 04/03/16 [Rx] Bisacodyl [Dulcolax] 10 mg RC DAILY PRN #0 supp.rect 04/03/16 [Rx] Heparin 5,000 unit SQ Q8HCO vial 04/03/16 [Rx] Levofloxacin 750 MG/150 ML [Levaquin 750mg/150 mL] 750 mg IVPB Q48H #1 bag 04/03 [Rx] MOM Conc [MILK OF MAGNESIA conc] 10 ml PO DAILY PRN #0 ud.liq 04/03/16 [Rx] Metoprolol [Lopressor] 25 mg PO BID tablet 04/03/16 [Rx] Morphine [Morphine Sulfate] 2 mg IVP Q2H PRN #0 syringe 04/03/16 [Rx] Naloxone [Narcan] 0.4 mg IVP Q2MIN PRN #0 inj 04/03/16 [Rx] Nitroglycerin 0.4 mg SL Q5MIN PRN #0 tab.subl 04/03/16 [Rx] Ondansetron [Zofran] 4 mg IVP Q8HR PRN #0 vial 04/03/16 [Rx] Pantoprazole [Protonix] 40 mg IVP DAILY vial 04/03/16 [Rx] Piperacillin/Tazobactam [Zosyn] 3.375 gm IVPB Q8HR #1 vial 04/03/16 [Rx] Simvastatin [Zocor] 10 mg PO DAILY tablet 04/03/16 [Rx] Allergies/Adverse Reactions: Allergies No Known Allergies Allergy (Verified 03/29/16 08:19) Procedures/tests Complete & Pending: Procedures Performed prior 72 hours Category Date Time Status CL Cardiac Catheterization [CL] Routine Orange Picker 04/01/16 09:39 Completed ECG 12 lead ECG [ECG] Routine Y 03/31/16 16:57 Completed Date of admission: 03/29/16 09:46 Primary care physician: [facility] Consults: 03/29/16 14:42 Consult to Physical Therapy [CONS] Routine Comment: Evaluate, develop and implement POC 03/29/16 14:43 Consult to Occupational Therapy [CONS] Routine Comment: Evaluate, develop and implement POC 03/31/16 08:31 Consult to Cardiology [CONS] Routine Comment: Consulting Provider: Cardiology Sa[facility] Reason for Consult: Severe critical aortic stenosis Call Completed: Yes 04/02/16 11:12 Consult to Cardiac Rehabilitation-Phase1 [CONS] Routine Comment: Reason for Consult: post op cath Call Completed: Yes 04/02/16 12:23 Consult to Cardiothoracic Surgery [CONS] Routine Consulting Provider: Cardiothoracic Surgery [place] Reason for Consult: Cath showed LM disease, Dr. Keys aware Time Notified: 12:15 Call Completed: Yes Discharging clinician: Ras Kee Anticipated date of discharge: 04/03/16 - Patient Status Disposition: Transfer Other Condition: Fair Functional capacity at discharge: uses cane/walker Overall status at discharge: patient is not back to baseline - Discharge Instructions Instructions: Aspirin (By mouth), Piperacillin/Tazobactam (Injection), Levofloxacin (Injection), Chest Pain (DC), Aortic Stenosis (DC), Aortic Stenosis (GEN), Acute Respiratory Distress Syndrome (DC), Chronic Hypertension ( DC) Follow Up With: [facility] [Primary Care Provider[facility] - Micheal Pfeiffer DO [Partnered Physician] - 04/24/16 9:05 am Additional Instructions: Patient to be transferred to [facility] for Cardiac intervention. Discussed with Dr. Mauricio at [facility] and accepted transfer. - Diet and Activity Activity: as per physical therapy Diet: low fat, low cholesterol Hospital course: Mr. Quevedo is a 85 year old male with hx of HTN and HLD was admitted on 2016 with chest pain, DEVORA score of 3, DINA and Leukeocytosis. CXR, EKG were done and the patient received ASA, Statin, BB and subligual nitroglycerin. He was found to have an oral abscess on his upper left gums and started on antibiotic coverage. Mr. quevedo claims that patient had teeth extraction on 03/19( left upper 5). patient received 16 tabs of amoxicillin and he never completed the course. He was started on Levaquin and Zosyn. He was also found to have a holosystolic murmur upon auscultation and an echocardiogram was ordered. Cardiology was consulted. Echo shows EF 65-70%. Mild LVH, mild diastolic dysfunction, severely calcified probable trileaflet aortic valve with reduced excursion. Severe aortic stenosis, MG 41mmHg, PV 4.02. Mild pulmonary hypertension. Troponins were negative x3. Cardiology discussed LHC and TAVR intervention with Mr. Quevedo. On 04/02/2016 Mr. Quevedo underwent LHC and was found to have LMCA stenosis of 70% and 50% stenosis of proximal Circumflex artery. Dr. Keys discussed TAVR and coronary stenting with the patient and that this is recommended to be done at [facility]. Mr. Quevedo agreed to this plan and willingness to be transferred for intervention. [facility] transfer center was contacted and the transfer was discussed with Dr. Mauricio who agreed to accept Mr. Quevedo. Dr. Mauricio requests [facility] CD and Echocardiogram reports. Mr. Quevedo has been seen and evaluated this morning and deemed safe for transfer by ACLs transport to [facility]. - Time Spent with Patient Total time spent providing and/or coordinating discharge services: - Constitutional Vitals: Temp Pulse Resp BP Pulse Ox 98 F 70 16 143/73 93 L 04/03/16 07:12 04/03/16 07:12 04/03/16 07:12 04/03/16 07:12 04/03/16 07:12 General appearance: Present: A&O X 3, pleasant, no acute distress, answers questions appropriately - Head Head exam: Present: atraumatic, normocephalic - Eye Eye exam: Present: PERRL, conjuntiva pink, sclera anicteric Pupils: Present: PERRL - ENT Additional comments: erythema of the left upper gum line. no sign of drainage, puss or bleeding. - Neck Neck exam general surgery: Present: supple, trachea midline. Absent: lymphadenopathy - Respiratory Respiratory exam: Present: CTAB. Absent: accessory muscle use, rales, rhonchi, wheezes - Cardiovascular Cardiovascular exam: Present: RRR. Absent: diastolic murmur, gallop, rubs, systolic murmur Additional comments: Grade 4/6 holosystolic ejection murmur appreciated. - GI/Abdominal GI/Abdominal exam: Present: normal bowel sounds, soft, no peritoneal signs. Absent: distended, tenderness - Extremities Exam Extremities exam: Present: warm, radial pulses palpable and symetrical. Absent : calf tenderness, cyanotic, pedal edema - Neurological Exam Neurological exam: Present: alert, oriented X3, no focal deficits - Psychiatric Psychiatric exam: Present: normal affect, normal mood - Skin Skin exam: Present: dry, warm <Sandra,Ronen P - Last Filed: 04/03/16 18:21> - Discharge Diagnosis (1) SIRS (systemic inflammatory response syndrome) Status: Acute (2) DINA (acute kidney injury) Status: Acute (3) Aortic stenosis Status: Acute Qualifiers: Cardiac valve disease etiology: etiology unspecified Qualified Code(s): I35.0 - Nonrheumatic aortic (valve) stenosis (4) HTN (hypertension) Status: Acute Qualifiers: Hypertension type: essential hypertension Qualified Code(s): I10 - Essential (primary) hypertension Procedures/tests Complete & Pending: Procedures Performed prior 72 hours Category Date Time Status CL Cardiac Catheterization [CL] Routine Orange Picker 04/01/16 09:39 Completed Date of admission: 03/29/16 09:46 Primary care physician: [facility] Consults: 03/29/16 14:42 Consult to Physical Therapy [CONS] Routine Comment: Evaluate, develop and implement POC 03/29/16 14:43 Consult to Occupational Therapy [CONS] Routine Comment: Evaluate, develop and implement POC 03/31/16 08:31 Consult to Cardiology [CONS] Routine Comment: Consulting Provider: Cardiology Sa[facility] Reason for Consult: Severe critical aortic stenosis Call Completed: Yes 04/02/16 11:12 Consult to Cardiac Rehabilitation-Phase1 [CONS] Routine Comment: Reason for Consult: post op cath Call Completed: Yes 04/02/16 12:23 Consult to Cardiothoracic Surgery [CONS] Routine Consulting Provider: Cardiothoracic Surgery [facility] Reason for Consult: Cath showed LM disease, Dr. Keys aware Time Notified: 12:15 Call Completed: Yes Hospital course: Mr. Quevedo is a 85 year old male - Time Spent with Patient Total time spent providing and/or coordinating discharge services: - Constitutional Vitals: Temp Pulse Resp BP Pulse Ox 98.1 F 70 18 134/65 97 04/03/16 15:30 04/03/16 15:30 04/03/16 15:30 04/03/16 15:30 04/03/16 15:30 - Attending Attestation I examined this patient and my medical decision-making was reviewed with the [employer]/PA/Advanced Practice Nurse/Resident Physician. I agree with the documented findings, disposition and treatment plan as described except to the extent set forth below.
[2016-04-03 15:32] VITALS: BP 134/65
== END 2016-04-03 17:05 | disposition other institution (70) | DRG 871 ==
LOC: EMEROO 01:48 → 2NENU 01:48
PROVIDERS: ADMIT Internal Medicine; ATTEND Internal Medicine